=== PATIENT | male | born 1935 | race Caucasian/White ===

== ENCOUNTER 2017-12-22 15:10 | Outpatient (CLI) | payer MEDICARE, OTHER ==
[2017-12-22 18:58] LABS: HGB - HEMOGLOBIN 14.5 g/dL (14.0-18.0); MEAN CORPUSCULAR HEMOGLOBIN 32.3 pg (27.0-31.0); MEAN CORPUSCULAR HGB CONC 33.2 g/dL (32.0-36.0); MEAN CORPUSCULAR VOLUME 97.3 fL (80.0-94.0); MEAN PLATELET VOLUME 10.4 fL (7.4-11.4); RED BLOOD COUNT 4.49 10^6/uL (4.70-6.10); WHITE BLOOD COUNT 7.4 x10^3/uL (4.8-10.8)
[2017-12-22 19:10] LABS: CALCIUM 8.8 mg/dL (8.5-10.3); CREATININE 1.2 mg/dL (0.6-1.2)
== END 2017-12-22 15:11 | disposition home or self-care (01) ==
LOC: LAB.WCP 15:10
PROVIDERS: ATTEND Family Medicine
DX: R06.00 Dyspnea, unspecified (principal)
CPT/HCPCS: 36415; 80048; 83880; 84443; 85027

== ENCOUNTER 2018-01-10 13:10 | Outpatient (CLI) | payer MEDICARE, OTHER ==
[~2018-01-10 13:10] MED LIST: ALBUTEROL NEB 2.5 MG/3 ML INH ONE
== END 2018-01-10 13:11 | disposition home or self-care (01) ==
LOC: RT 13:10
PROVIDERS: ATTEND Family Medicine
DX: R06.00 Dyspnea, unspecified (principal)
CPT/HCPCS: 94060

== ENCOUNTER 2018-12-21 11:12 | Outpatient (CLI) | payer MEDICARE, OTHER ==
[2018-12-21 18:59] LABS: HGB - HEMOGLOBIN 11.6 g/dL (14.0-18.0); MEAN CORPUSCULAR HEMOGLOBIN 31.6 pg (27.0-31.0); MEAN CORPUSCULAR VOLUME 98.9 fL (80.0-94.0); MEAN PLATELET VOLUME 8.6 fL (7.4-11.4); RED BLOOD COUNT 3.65 10^6/uL (4.70-6.10); RED CELL DISTRIBUTION WIDTH 13.3 % (12.0-15.0); WHITE BLOOD COUNT 7.7 x10^3/uL (4.8-10.8)
[2018-12-21 19:14] LABS: CALCIUM 8.5 mg/dL (8.5-10.3)
== END 2018-12-21 11:13 | disposition home or self-care (01) ==
LOC: LAB.WCP 11:12
PROVIDERS: ATTEND Family Medicine
DX: R06.02 Shortness of breath (principal)
CPT/HCPCS: 36415; 80048; 83880; 85027

== ENCOUNTER 2018-12-28 14:10 | Outpatient (CLI) | payer MEDICARE, OTHER ==
--- NOTE | 2018-12-28 15:18 | XRAY Report ---
Reason: EXERTIONAL SHORTNESS OF BREATH Procedure Date: 12/28/2018 Accession Number: [id number] / [id number] Procedure: WCP - Chest 2 View X-Ray CPT Code: 51930 FULL RESULT: EXAM: CHEST RADIOGRAPHY EXAM DATE: 12/28/2018 02:26 PM. CLINICAL HISTORY: EXERTIONAL SHORTNESS OF BREATH. COMPARISON: CHEST 2 VIEW PA/LAT 12/22/2017 3:23 PM. TECHNIQUE: 2 views. FINDINGS: Lungs/Pleura: Lungs are well expanded. No evidence of lobar infiltrate. No definite evidence of pleural effusion. There is no evidence of pneumothorax. Mediastinum: Mild cardiomegaly. Patient has undergone sternotomy for valve replacement surgery. There is thoracic aortic tortuosity. Stable dehiscence of upper sternotomy wires. Other: There is left shoulder degenerative disease. IMPRESSION: No acute intrathoracic plain film abnormality. RADIA
== END 2018-12-28 14:11 | disposition home or self-care (01) ==
LOC: DI.WCP 14:10
PROVIDERS: ATTEND Family Medicine
DX: R06.00 Dyspnea, unspecified (principal)
CPT/HCPCS: 71046

== ENCOUNTER 2019-01-06 13:25 | Outpatient (CLI) | payer MEDICARE, OTHER | END 2019-01-06 13:26 | disposition home or self-care (01) | LOC: DI 13:25 | PROVIDERS: ATTEND Family Medicine | DX: I34.0 Nonrheumatic mitral (valve) insufficiency (principal); Z95.2 Presence of prosthetic heart valve | CPT/HCPCS: 93306 ==

== ENCOUNTER 2019-01-26 13:46 | Outpatient (CLI) | payer MEDICARE, OTHER ==
[2019-01-26 18:28] LABS: MEAN CORPUSCULAR HEMOGLOBIN 28.8 pg (27.0-31.0); MEAN CORPUSCULAR HGB CONC 29.9 g/dL (32.0-36.0); MEAN CORPUSCULAR VOLUME 96.2 fL (80.0-94.0); MEAN PLATELET VOLUME 11.1 fL (7.4-11.4); RED BLOOD COUNT 4.52 10^6/uL (4.70-6.10); RED CELL DISTRIBUTION WIDTH 12.4 % (12.0-15.0); WHITE BLOOD COUNT 7.1 x10^3/uL (4.8-10.8)
== END 2019-01-26 13:47 | disposition home or self-care (01) ==
LOC: LAB.WCP 13:46
PROVIDERS: ATTEND Family Medicine
DX: R06.00 Dyspnea, unspecified (principal)
CPT/HCPCS: 36415; 80048; 83880; 85027

== ENCOUNTER 2019-08-07 14:25 | Outpatient (CLI) | payer MEDICARE, OTHER ==
[2019-08-07 19:06] LABS: ALBUMIN 3.8 g/dL (3.2-5.5); ALBUMIN/GLOBULIN RATIO 1.2 (1.0-2.2); BILIRUBIN,TOTAL 0.8 mg/dL (0.2-1.0); CALCIUM 8.4 mg/dL (8.5-10.3)
== END 2019-08-07 23:59 | disposition home or self-care (01) ==
LOC: LAB.N 14:25
PROVIDERS: ATTEND Family Medicine
DX: B35.6 Tinea cruris (principal); N40.0 Benign prostatic hyperplasia without lower urinary tract symptoms
CPT/HCPCS: 36415; 80053; 84153

== ENCOUNTER 2022-05-21 10:52 | Outpatient (CLI) | payer MEDICARE, OTHER ==
[2022-05-21 18:13] LABS: BASOPHILS % (AUTO) 0.5 %; EOSINOPHILS # (AUTO) 0.2 10^3/uL (0.0-0.7); EOSINOPHILS % (AUTO) 2.8 %; HCT - HEMATOCRIT 44.5 % (42.0-52.0); HGB - HEMOGLOBIN 14.7 g/dL (14.0-18.0); LYMPHOCYTES # (AUTO) 1.7 10^3/uL (1.5-3.5); MEAN CORPUSCULAR HEMOGLOBIN 33.1 pg (27.0-31.0); MEAN CORPUSCULAR VOLUME 100.2 fL (80.0-94.0); MEAN PLATELET VOLUME 11.7 fL (7.4-11.4); MONOCYTES # (AUTO) 0.6 10^3/uL (0.0-1.0); NEUTROPHILS # (AUTO) 3.8 10^3/uL (1.5-6.6); NEUTROPHILS % (AUTO) 59.4 %; PLT - PLATELET COUNT 205 10^3/uL (130-450); RED BLOOD COUNT 4.44 10^6/uL (4.70-6.10); WHITE BLOOD COUNT 6.4 x10^3/uL (4.8-10.8)
[2022-05-21 18:35] LABS: ALBUMIN/GLOBULIN RATIO 1.3 (1.0-2.2); ALKALINE PHOSPHATASE 51 IU/L (42-121); ALT ALANINE AMINOTRANSFERASE 15 IU/L (10-60); AST ASPARTATE AMINOTRANSFERASE 20 IU/L (10-42); BILIRUBIN,TOTAL 1.3 mg/dL (0.2-1.0); BUN - BLOOD UREA NITROGEN 18 mg/dL (6-20); CARBON DIOXIDE - CO2 24 mmol/L (21-32); CHLORIDE 106 mmol/L (101-111); CHOL/HDL RATIO 3.1 (<5.0); CHOLESTEROL 160 mg/dL; CREATININE 0.9 mg/dL (0.6-1.2); GFR - MDRD 80 (>89); GLUCOSE 99 mg/dL (70-100); HDL CHOLESTEROL 52 mg/dL; LDL CHOLESTEROL,CALCULATED 90 mg/dL; LDL/HDL RATIO 1.7 (<3.6); SODIUM 137 mmol/L (135-145); TOTAL PROTEIN 7.2 g/dL (6.7-8.2); TRIGLYCERIDES 92 mg/dL; VLDL CHOLESTEROL 18 mg/dL
[2022-05-21 18:41] LABS: THYROID STIMULATING HORMONE 4.55 uIU/mL (0.34-5.60)
== END 2022-05-21 10:53 | disposition home or self-care (01) ==
LOC: LAB.N 10:52
PROVIDERS: ATTEND Internal Medicine
DX: I48.0 Paroxysmal atrial fibrillation (principal); Z95.2 Presence of prosthetic heart valve; Z13.220 Encounter for screening for lipoid disorders
CPT/HCPCS: 36415; 80053; 80061; 83721; 84443; 85025

== ENCOUNTER 2022-09-20 16:43 | Outpatient (CLI) | payer MEDICARE | END 2022-09-20 16:44 | disposition left against medical advice (07) | LOC: EMS 16:43 | DX: S01.412A Laceration without foreign body of left cheek and temporomandibular area, initial encounter (principal); S01.112A Laceration without foreign body of left eyelid and periocular area, initial encounter; W01.0XXA Fall on same level from slipping, tripping and stumbling without subsequent striking against object, initial encounter; Y93.01 Activity, walking, marching and hiking; Y92.511 Restaurant or cafe as the place of occurrence of the external cause ==

== ENCOUNTER 2023-07-12 10:15 | Outpatient (CLI) | payer MEDICARE ==
--- NOTE | 2023-07-12 12:12 | XRAY Report ---
PROCEDURE: Hand 3 View RT INDICATIONS: LOCALIZED SWELLING TO RIGHT HAND TECHNIQUE: 3 views of the hand(s) acquired. COMPARISON: None. FINDINGS: Bones: No fractures or dislocations. 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 Mild to moderate osteoarthritic changes of the other interphalangeal joints. No suspicious bony le sions. Soft tissues: No suspicious soft tissue calcifications or masses. IMPRESSION: No acute bony abnormality. Osteoarthritic changes of the hand, severe at the first interphalangeal lida int. Reviewed by: Billy Bowers MD on 07/12/2023 12:10 PM PST Approved by: Billy Bowers MD on 07/12/2023 12:10 PM PST Station ID: [id number]
== END 2023-07-12 10:30 | disposition home or self-care (01) ==
LOC: DI.N 10:15
PROVIDERS: ATTEND Family Medicine
DX: R22.31 Localized swelling, mass and lump, right upper limb (principal); M19.041 Primary osteoarthritis, right hand
CPT/HCPCS: 36415; 80048; 83880; 84550; 85651

== ENCOUNTER 2023-07-12 10:30 | Outpatient (CLI) | payer MEDICARE ==
[2023-07-12 18:22] LABS: CALCIUM 9.1 mg/dL (8.5-10.3); CREATININE 0.9 mg/dL (0.6-1.3); POTASSIUM 3.7 mmol/L (3.5-4.5); URIC ACID 6.6 mg/dL (4.4-7.6)
== END 2023-07-12 10:45 | disposition home or self-care (01) ==
LOC: LAB.N 10:30
PROVIDERS: ATTEND Family Medicine
DX: R22.31 Localized swelling, mass and lump, right upper limb (principal)
CPT/HCPCS: 36415; 80048; 83880; 84550; 85651

== ENCOUNTER 2024-09-08 00:04 | Inpatient (IN) ==
--- NOTE | 2024-09-08 00:18 | ED Physician Documentation ---
PD HPI ABD PAIN Stated complaint Stated Complaint: BLEEDING FROM [place] Chief complaint Chief Complaint: Abd Pain History obtained from History obtained from: Patient Additional information Additional information: 89yM with pmh stage 5 prostate cancer (urologist Dr. Esposito) p/w hematuria and suprapubic pain tonight. patient has a difficult time giving a history but is AOX4. Chart review reveals he is newly diagnosed with cancer with prostate bx completed 08/06/24 and office visit 08/15/24 with plan for bicalutamide palliative oral androgen deprivation therapy. Patient is well appearing and denies fever or pain anywhere aside from suprapubic region. urinating without difficulty Meds/Allgy Home Medications Ambulatory Orders Medication Instructions Recorded Confirmed finasteride 5 mg-tadalafil 5 mg 1 cap PO QDAY 05/17/24 08/06/24 capsule latanoprost 0.005 % eye drops 1 drp ophthalmic (eye) QDAY 05/17/24 08/06/24 tamsulosin 0.4 mg capsule 0.4 mg PO QDAY #90 caps 07/07/24 08/06/24 bicalutamide 50 mg tablet 50 mg PO QDAY #30 tabs 08/15/24 08/15/24 Allergies Allergies Allergy/AdvReac Type Severity Reaction Status Date / Time No Known Allergies Allergy Unknown Unknown Verified 09/08/24 00:14 [facility] Medical History Medical History (Updated 09/08/24 @ 06:14 by Ericka Gonzalez MD) Lipid screening (11/20/21) Lipid screening (06/18/23) Laceration without foreign body of other part of head, subsequent encounter (09/23/22) Laceration without foreign body of other part of head, initial encounter (09/20/22) Exertional shortness of breath (12/21/18) Dyspnea (12/22/17) Acute COVID-19 (06/15/22) Hard of hearing Glaucoma Coronary artery disease Gout History of cataract Surgical History Surgical History History of total left knee replacement Aortic valve replaced History of ventral hernia repair Social History Social History Smoking Status: Never smoker Relationship: Do you feel safe in your home environment?: Yes Suffered physical, verbal, emotional, or financial abuse?: No Frequency: Occasional Substance Use: denies use Are you sexually active?: No POLST Patient has POLST: Yes Exam Constitutional normal general appearance and no apparent distress elderly appearing HENMT normocephalic and head/scalp atraumatic Eyes PERRL Gastrointestinal abdomen normal to inspection, abdomen soft to palpation and nontender to palpation Genitourinary no CVA tenderness Results Vitals Vitals: Vital Signs - 24 hr 09/08/24 00:10 09/08/24 00:39 09/08/24 02:14 Temperature 36.3 C L Temperature Source Temporal Artery Scan Pulse Rate 67 85 Respiratory Rate 18 16 Blood Pressure 112/82 109/81 O2 Saturation 93 96 O2 Source Room air Room air Pain Intensity 7 8 7 09/08/24 02:20 09/08/24 02:23 09/08/24 02:53 Temperature Temperature Source Pulse Rate Respiratory Rate Blood Pressure O2 Saturation O2 Source Pain Intensity 9 7 6 09/08/24 04:00 09/08/24 04:06 09/08/24 04:36 Temperature Temperature Source Pulse Rate 94 Respiratory Rate 24 Blood Pressure 114/90 O2 Saturation 98 O2 Source Room air Pain Intensity 8 8 8 09/08/24 05:20 Temperature Temperature Source Pulse Rate Respiratory Rate Blood Pressure O2 Saturation O2 Source Pain Intensity 8 Oxygen O2 Source Room air Labs Labs: Laboratory Tests 09/08/24 09/08/24 09/08/24 00:30 02:15 05:45 WBC 8.8 RBC 3.64 L Hgb 12.2 L Hct 37.5 L MCV 103.0 H MCH 33.5 H MCHC 32.5 RDW 13.4 Plt Count 213 MPV 10.6 Neut # (Auto) 5.8 Lymph # (Auto) 2.2 Bond # (Auto) 0.7 Eos # (Auto) 0.1 Baso # (Auto) 0.0 Absolute Nucleated RBC 0.00 Nucleated RBC % 0.0 PT 15.1 H INR 1.4 H Sodium 137 Potassium 3.8 Chloride 103 Carbon Dioxide 26 Anion Gap 8.0 BUN 12 Creatinine 0.9 Estimated GFR (MDRD) 79 L Glucose 109 H Calcium 8.8 Total Bilirubin 1.0 AST 18 ALT 10 Alkaline Phosphatase 231 H Total Protein 6.8 Albumin 3.5 Globulin 3.3 Albumin/Globulin Ratio 1.1 Lipase 15 Urine Color RED/BLOODY Urine Clarity BLOODY Urine pH 8.0 H Ur Specific [place] 1.025 Urine Protein >=300 H Urine Glucose (UA) NEGATIVE Urine Ketones NEGATIVE Urine Occult Blood LARGE H Urine Nitrite Urine Bilirubin NEGATIVE Urine Urobilinogen 0.2 (NORMAL) Ur Leukocyte Esterase NEGATIVE Urine RBC TNTC H Urine WBC 0-3 Ur Squamous Epith Cells RARE Squamous Urine Bacteria None Seen Urine Culture Comments NOT INDICATED PD Medical Decision Making ED course ED course: 89yM p/w hematuria X 1 day with history of newly diagnosed prostate cancer. also with suprapubic pain, improving s/p IM dilaudid. urinalysis does not show infection but does have blood, likely related to his cancer. His kidney function is normal. CT shows urinary retention with likely clotted blood in the bladder. He has extensive pelvic cancer and prostate is severely enlarged. He was having severe pain and had several doses of dilaudid without relief. patient was able to urinate about 100cc all night per nurse staff and bladder scan shows 500cc in bladder. multiple attempts at catheterization were attempted and after 2nd coudet catheter attempt we were able to achieve cath. plan for continuous bladder irrigation and admission for pain control. SW consult placed given his advanced disease and need for advanced care planning. patient lives alone at [facility] and states he has limited resources within the community and is "kind of a hermit". He understands he has a poor prognosis given his advanced cancer and is interested in palliative care resources. Patient endorsed to incoming daytime ED MD at 7am shift change. Discharge Plan Discharge Condition: Stable Clinical Impression: Hematuria, Prostate cancer, Acute urinary retention, Hydroureteronephrosis Prescriptions: No Action tamsulosin 0.4 mg capsule 0.4 mg PO QDAY Qty: 90 3RF finasteride-tadalafil 5-5 mg capsule 1 cap PO QDAY Rx Instructions: administer on an empty stomach latanoprost 0.005 % drops 1 drp ophthalmic (eye) QDAY bicalutamide 50 mg tablet 50 mg PO QDAY Qty: 30 3RF Activity Restrictions/Additional Instructions: You were seen in the emergency department for evaluation of blood in the urine, likely related to your prostate cancer. Your urinalysis showed no infection. Pain medication was provided to take home. You should follow up with Dr. Esposito and take bicalutamide as discussed at your office visit on august 15. Please follow-up with your urologist and return to the emergency department if you have any new or worsening symptoms or other concerns. Print Language: Martiniquais Patient Instructions: Cancer Prostate Stand Alone Forms: PCP List
[2024-09-08] MEDS: HYDROmorphone 0.5 MG/0.5 ML SYRINGE IM STA (00:39)
[2024-09-08] MEDS: oxyCODONE/ACET 5/325 Prepack 4 PO STA (00:41)
[2024-09-08 00:57] LABS: BILIRUBIN,URINE NEGATIVE (NEGATIVE); GLUCOSE, URINE (UA) NEGATIVE (NEGATIVE); KETONES,URINE (UA) NEGATIVE (NEGATIVE); LEUKOCYTE ESTERASE, URINE NEGATIVE (NEGATIVE); OCCULT BLOOD,URINE LARGE (NEGATIVE); PROTEIN,URINE >=300 mg/dL (NEGATIVE); UROBILINOGEN,URINE 0.2 (NORMAL) E.U./dL (NORMAL)
[2024-09-08 00:59] LABS: CLARITY,URINE BLOODY (CLEAR)
[2024-09-08 01:00] LABS: BACTERIA,URINE None Seen /HPF (None Seen); RBC,URINE TNTC /HPF (0-5); SQUAMOUS EPITHELIAL CELL,UR RARE Squamous (<= Few); WBC,URINE 0-3 /HPF (0-3)
[2024-09-08 02:23] LABS: BASOPHILS % (AUTO) 0.3 %; EOSINOPHILS # (AUTO) 0.1 10^3/uL (0.0-0.7); EOSINOPHILS % (AUTO) 1.4 %; HCT - HEMATOCRIT 37.5 % (42.0-52.0); HGB - HEMOGLOBIN 12.2 g/dL (14.0-18.0); LYMPHOCYTES # (AUTO) 2.2 10^3/uL (1.5-3.5); LYMPHOCYTES % (AUTO) 24.5 %; MEAN CORPUSCULAR HEMOGLOBIN 33.5 pg (27.0-31.0); MEAN CORPUSCULAR HGB CONC 32.5 g/dL (32.0-36.0); MEAN PLATELET VOLUME 10.6 fL (7.4-11.4); MONOCYTES # (AUTO) 0.7 10^3/uL (0.0-1.0); MONOCYTES % (AUTO) 7.8 %; NEUTROPHILS # (AUTO) 5.8 10^3/uL (1.5-6.6); NEUTROPHILS % (AUTO) 65.7 %; PLT - PLATELET COUNT 213 10^3/uL (130-450); RED BLOOD COUNT 3.64 10^6/uL (4.70-6.10); RED CELL DISTRIBUTION WIDTH 13.4 % (12.0-15.0); WHITE BLOOD COUNT 8.8 x10^3/uL (4.8-10.8)
[2024-09-08] MEDS: oxyCODONE 5 MG TABLET PO STA (02:23)
[2024-09-08 02:41] LABS: ALBUMIN 3.5 g/dL (3.2-5.5); ALBUMIN/GLOBULIN RATIO 1.1 (1.0-2.2); CALCIUM 8.8 mg/dL (8.5-10.3); CREATININE 0.9 mg/dL (0.6-1.3); POTASSIUM 3.8 mmol/L (3.5-4.5); TOTAL PROTEIN 6.8 g/dL (6.4-8.9)
[2024-09-08] MEDS: SODIUM CHLORIDE 0.9% 500 ML IV ONE (04:05)
[2024-09-08] MEDS: HYDROmorphone 0.5 MG/0.5 ML SYRINGE IVP STA ×2 (04:06→05:20)
[2024-09-08] MEDS ORDERED: iohexoL-300 100 ML VIAL ONE (04:17)
[2024-09-08] MEDS: iohexoL-300 100 ML VIAL IVP ONE (05:07)
[2024-09-08 05:57] LABS: INR 1.4 (0.8-1.2); PT - PROTHROMBIN TIME 15.1 secs (9.9-12.6)
--- NOTE | 2024-09-08 07:34 | ED Physician Documentation ---
ED Addendum Addendum Addendum: Patient is signed out to me by Dr. Gonzalez awaiting hospitalist shift change. Plan is to admit him for CBI/manual clot removal from his catheter. He currently has a 16 Nepalese coud catheter in, this will be high risk for clotting. He has metastatic cancer and does live alone. He is open to discussion of hospice. Not on hospice currently. Reached out to Dr. Esposito with the plan to see the patient tomorrow in the hospital when he returns to [facility]. A 16 Nepalese coud was changed to a 20 Nepalese three-way catheter and CBI started. Discussed the case with the hospitalist, Dr. Lo who accepts. Bladder is full of blood/clots on CT scan. This document was made in part using voice recognition software. While efforts are made to proofread this document, sound alike and grammatical errors may occur. Discharge Plan Discharge Patient Disposition: 66 [facility] DC/Xfer Condition: Stable Clinical Impression: Prostate cancer, Acute urinary retention, Hydroureteronephrosis Hematuria Qualifiers: Hematuria type: gross Qualified Code(s): R31.0 - Gross hematuria Prescriptions: No Action tamsulosin 0.4 mg capsule 0.4 mg PO QDAY Qty: 90 3RF finasteride-tadalafil 5-5 mg capsule 1 cap PO QDAY Rx Instructions: administer on an empty stomach latanoprost 0.005 % drops 1 drp ophthalmic (eye) QDAY bicalutamide 50 mg tablet 50 mg PO QDAY Qty: 30 3RF Activity Restrictions/Additional Instructions: You were seen in the emergency department for evaluation of blood in the urine, likely related to your prostate cancer. Your urinalysis showed no infection. Pain medication was provided to take home. You should follow up with Dr. Esposito and take bicalutamide as discussed at your office visit on august 15. Please follow-up with your urologist and return to the emergency department if you have any new or worsening symptoms or other concerns. Print Language: Armenian
--- NOTE | 2024-09-08 09:45 | HISTORY & PHYSICAL EXAMINATION ---
Chief Complaint Chief Complaint Chief Complaint: Hematuria History of Present Illness Admitted From Admitted From:: Home History Obtained From Records Reviewed: Yes History obtained from: Patient Exam Limitations: None History of Present Illness HPI Comment/Other: Patient is a 89-year-old male with a history of prostate cancer with metastatic disease including pelvic adenopathy, osteoblastic sacral disease, pulmonary nodules who presented with hematuria, as well as dysuria. He states that he has had difficulty urinating with burning for approximately 4 to 5 days. Yesterday evening, he started noticing some blood from his penile area. He has had some continued bleeding since then. He denies any fevers or chills. Records were reviewed, and the last time he saw his urologist, Dr. Esposito was on 08/15/2024. At that time, he did have a cystoscopy done with concern for fungating mass. He recommended PSMA PET CT scan, which she had ordered to [facility]. He also recommended a second opinion from [facility] urology. Patient does have this PET scan scheduled, but has not been completed yet. He was started on continuous bladder irrigation. ED staff did speak with him about Hospice care, and he was open to an informational. In the ER, patient was normotensive blood pressure was 112/82, heart rate was 67, respiratory rate was 18, he was saturating 96% on room air, and was afebrile. CT scan was done, and it did show extra capsular prostate cancer invading the bladder and seminal vesicles resulting in bilateral ureteral obstruction, greater on the left and intravesicular hemorrhage. Emergency room did contact patient's urologist who won't be in town until tomorrow. Meds/Allgy Home Medications Ambulatory Orders Medication Instructions Recorded Confirmed finasteride 5 mg-tadalafil 5 mg 1 cap PO QDAY 05/17/24 08/06/24 capsule latanoprost 0.005 % eye drops 1 drp ophthalmic (eye) QDAY 05/17/24 08/06/24 tamsulosin 0.4 mg capsule 0.4 mg PO QDAY #90 caps 07/07/24 08/06/24 bicalutamide 50 mg tablet 50 mg PO QDAY #30 tabs 08/15/24 08/15/24 finasteride 5 mg tablet mg 09/08/24 Allergies Allergies Allergy/AdvReac Type Severity Reaction Status Date / Time No Known Allergies Allergy Unknown Unknown Verified 09/08/24 00:14 [facility] Medical History Medical History (Updated 09/08/24 @ 12:23 by Chichi Moon MD) Lipid screening (11/20/21) Lipid screening (06/18/23) Laceration without foreign body of other part of head, subsequent encounter (09/23/22) Laceration without foreign body of other part of head, initial encounter (09/20/22) Exertional shortness of breath (12/21/18) Dyspnea (12/22/17) Acute COVID-19 (06/15/22) Hard of hearing Glaucoma Coronary artery disease Gout History of cataract Surgical History Surgical History History of total left knee replacement Aortic valve replaced History of ventral hernia repair Social History Social History Smoking Status: Never smoker Second hand tobacco smoke exposure: No Do you dip or chew tobacco?: No Do you vape?: No Patient requests smoking cessation consult: No Initiate information on smoking cessation: No Relationship: Level: Assisted Home Mobility Equipment: Cane Do you feel safe in your home environment?: Yes Suffered physical, verbal, emotional, or financial abuse?: No Frequency: Occasional Substance Use: denies use Are you sexually active?: No POLST Patient has POLST: Yes Review of Systems Constitutional Reports: Fatigue, Malaise, Weakness and Poor appetite; Denies: Fever, Chills, Diaphoresis, Night sweats or Changes in appetite or eating habits Eyes Denies: Pain, Irritation, Amaurosis or Blurry vision Ears, nose, mouth, and throat Denies: Ear pain, Ear discharge, Hearing loss, Hearing aids, Tinnitus, Nasal discharge, Nasal congestion, Throat pain, Neck pain or Throat swelling Cardiovascular Denies: Irregular heart rate, chest pain, palpitations, edema, swelling of feet/ankles or shortness of breath with exertion Respiratory Denies: Shortness of breath, Cough, Sputum production, Change in phlegm color or Wheezing Gastrointestinal Denies: Abdominal pain, Abdominal distention, Nausea, Vomiting, Poor appetite, Heartburn, Diarrhea, Constipation or Bloating Genitourinary Reports: Painful urination, Incontinence, Blood in urine and Penile discharge; Denies: Flank pain, Urinary frequency, Urinary urgency or Nocturia Musculoskeletal Denies: Back pain, Neck pain, Extremity pain or Extremity swelling Integumentary/Breast Denies: Rash, Itching, Dryness, Redness or Skin pain Neurological Reports: General weakness; Denies: Headache, Focal weakness, Weakness in extremities or Numbness in extremities Psychiatric Denies: Depression, Anxiety, Mood swings, Panic attacks or Change in sleep pattern Endocrine Reports: Fatigue; Denies: Excessive urination or Excessive thirst Hematologic/Lymphatic Denies: Anemia, Easy bruising, Petechiae, Easy bleeding or Blood clots Allergic/Immunologic Denies: Throat swelling, Tongue swelling or Wheezing Prior Level of Functionality: Lives alone. Independent of daily living. Exam Constitutional normal general appearance, no apparent distress, average body habitus, no limitations and alert HENMT normocephalic, head/scalp atraumatic and hearing grossly normal bilaterally Eyes PERRL, EOMs intact bilaterally, conjunctivae normal and no scleral icterus Neck/C-Spine visual inspection normal, trachea midline and cervical spine nontender Lymph no lymphadenopathy noted Chest inspection of chest normal Respiratory breath sounds equal bilaterally, normal respiratory effort, clear to auscultation bilaterally, no wheezes and no rales Cardiovascular normal heart rate noted, rhythm abnormal (irregular), no murmur and no JVD Gastrointestinal abdomen normal to inspection, abdomen soft to palpation and nontender to palpation Genitourinary no CVA tenderness and bladder abnormal to palpation (tender) Extremities normal to inspection, normal to palpation, no tenderness and full ROM Neurology no movement abnormality noted and no sensory deficits noted Psychiatry mental status grossly normal, oriented x3, thought process normal, cooperative and affect normal Skin skin color normal, no rash, no lesions and no wounds Conclusion/Plan Problem List (1) Acute urinary retention: Plan: CT abdomen shows extracapsular prostate 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 20 Mal[place]ian placed by emergency room. Spoke with urology, recommend manual irrigation when clots off. Hold off on continuous bladder irrigation at this time. Will make patient n.p.o. tomorrow at 11 AM for planned procedure tomorrow evening. Continue IV Rocephin every 24 hours. Urology following. (2) Hydroureteronephrosis: Plan: See above. (3) Hematuria: Plan: See above. Qualifiers: Hematuria type: gross Qualified Code(s): R31.0 - Gross hematuria (4) Malignant neoplasm of prostate with Alex grade score of 8 to 10: Plan: Patient with recently diagnosed prostate cancer with extensive metastasis to bone, pulmonary nodules, pelvic adenopathy. Expresses interest in hospice informational at this time. (5) Paroxysmal atrial fibrillation: Plan: Patient is not on anticoagulation in the outpatient setting. Currently he is in atrial fibrillation, but is rate controlled. Continue to monitor. (6) Gout: Plan: Has not been on any medication for this for a while. Continue to monitor. Qualifiers: Gout site: unspecified site Gout etiology: unspecified cause C hronicity: chronic Presence of tophus: without tophus Qualified Code(s): M [id number].[id number] - Chronic gout, unspecified, without tophus (tophi) (7) Coronary artery disease: Plan: Hold aspirin in setting of active hematuria. Qualifiers: Coronary Disease-Associated Artery/Lesion type: unspecified vessel or lesion type [place] vs. transplanted heart: unspecified whether [place] or transplanted heart Associated angina: unspecified whether angina present Q ualified Code(s): I25.10 - Atherosclerotic heart disease of [place] coronary artery without angina pectoris Lab Results Lab results reviewed: Yes 09/08/24 02:15 09/08/24 02:15 Diagnostic Imaging Results Diagnostic Imaging Results: positive Final report reviewed Core Measures Anticipated LOS I expect patient to be DC'd or transferred within 96 hours.: Yes DVT/VTE - Prophylaxis VTE/DVT Device ordered at admit?: Yes VTE/DVT Prophylaxis med ordered at admit?: No Not Ordered - Medical Reason: Contraindicated Stroke - Rehab Assessment Rehab services assessment to be ordered?: No Not Ordered - Medical Reason: Not indicated AMI - Statin at Admit Aspirin Prescribed on Admit: No Not Ordered - Medical Reason: Contraindicated
--- NOTE | 2024-09-08 09:54 | CT Report ---
PROCEDURE: CT Abdomen/Pelvis W INDICATIONS: suprapubic pain TECHNIQUE: Helical axial CT of the abdomen and pelvis was obtained after intravenous contrast adminis tration and reformatted in multiple planes. Radiation dose reduction was achieved using automated exp osure control or adjustment of mA and/or kV according to patient size. COMPARISON: None FINDINGS: Lower thorax: Bilateral pulmonary nodules noted in the lung bases, largest measures 11 mm in the righ t middle lobe. Dense coronary artery vascular calcification. Midline sternotomy wires. No hiatal her gilberto. Liver: Normal in size and attenuation. No contour deformity present. Biliary system: No calcified cholelithiasis or pericholecystic inflammation. No evidence of bile du ct dilatation. Pancreas: Unremarkable without mass or inflammation evident. Spleen: Normal in size and density. Adrenals: 11 mm right adrenal nodule Reproductive system: Hypertrophic prostate elevates the bladder floor. Several periprostatic enlarge d lymph nodes. Pelvic sidewall as well as obturator nodes. There is an irregular right obturator node measuring 3.3 cm. Urinary system: Bilateral hydronephrosis and hydroureter greater on the left. No obstructing renal o r ureteral calcification. Intrabladder hemorrhage noted to. Urinary bladder unremarkable. Gastrointestinal system: The bowel appears unremarkable with no evidence of bowel obstruction or inf lammation. The stomach appears unremarkable. Peritoneal spaces: No mesenteric or retroperitoneal adenopathy. No free air. No free fluid. Vasculature: The IVC, aorta and iliac vasculature are unremarkable. Abdominal wall: Abdominal wall is intact without evidence of ventral or inguinal hernias. Musculoskeletal: Right sacral osteoblastic lesion measures 3 cm without sacral fracture. Degenerativ e disc disease and arthropathy. IMPRESSION: Extracapsular prostate cancer invading the bladder and seminal vesicles resulting in bilateral ureter al obstruction greater on the left and intravesicular hemorrhage. Local and distant metastatic disease includes pelvic adenopathy, osteoblastic sacral disease, pulmona ry nodules. Note: This final report is concordant with the preliminary after-hours interpretation provided by [facility], [email or web address] Reviewed by: Kelechi Esparza MD on 09/08/2024 8:53 AM [place] Approved by: Kelechi Esparza MD on 09/08/2024 8:53 AM [place] Station ID: [id number]
[2024-09-08] MEDS: MORPHINE 2 MG/ML CARPUJECT IVP PRN (09:57)
[2024-09-08] MEDS: SODIUM CHLORIDE FLUSH 0.9% 10 ML SYRINGE IVP SCH (09:57)
[2024-09-08] MEDS: TAMSULOSIN 0.4 MG CAPSULE PO SCH (11:40)
[2024-09-08] MEDS: FINASTERIDE 5 MG TABLET PO SCH (11:40)
[2024-09-08] MEDS: HYDROcod/ACETAM 5/325 MG TABLET PO PRN (13:44)
[2024-09-08] MEDS: SODIUM CHLORIDE FLUSH 0.9% 10 ML SYRINGE IVP PRN (13:45)
[2024-09-08] MEDS: cefTRIAXone 1 GM VIAL IVP SCH (13:45)
--- NOTE | 2024-09-08 15:23 | PHARMACY PROGRESS NOTE ---
Best Possible Medication History Admit Date and Time: 09/08/24 [id number] Home Medications Medication Instructions Recorded Confirmed Type latanoprost 0.005 % eye drops 1 drp ophthalmic (eye) QPM 05/17/24 09/08/24 History bicalutamide 50 mg tablet 50 mg PO DAILY 09/08/24 09/08/24 History finasteride 5 mg tablet 5 mg PO DAILY 09/08/24 09/08/24 History tamsulosin 0.4 mg capsule 0.4 mg PO DAILY 09/08/24 09/08/24 History Processed by: Pharmacy Medications reviewed in ED?: No Medication History completed: Yes Patient Interview: Completed Secondary Source(s): Pharmacy records and Insurance records [facility] Statement: As the person ultimately responsible for medication therapy, providers are able to order a medication from an existing home medication list in [facility] via the "Reconcile Routine" prior to Confirmation of that medication by software support representative. Such practice is discouraged except when the physician, in their clinical judgment, deems that a medical need exists for a medication without regard to previous use.
[2024-09-08] MEDS: MELATONIN 3 MG TABLET PO SCH (17:39)
[2024-09-08] MEDS: LATANOPROST 0.005% OPHTH DROPS EACHEYE SCH (21:20)
[2024-09-09 06:05] LABS: HCT - HEMATOCRIT 29.7 % (42.0-52.0); HGB - HEMOGLOBIN 9.6 g/dL (14.0-18.0); MEAN CORPUSCULAR HEMOGLOBIN 33.6 pg (27.0-31.0); MEAN CORPUSCULAR HGB CONC 32.3 g/dL (32.0-36.0); MEAN CORPUSCULAR VOLUME 103.8 fL (80.0-94.0); MEAN PLATELET VOLUME 10.7 fL (7.4-11.4); RED BLOOD COUNT 2.86 10^6/uL (4.70-6.10); RED CELL DISTRIBUTION WIDTH 13.8 % (12.0-15.0); WHITE BLOOD COUNT 8.8 x10^3/uL (4.8-10.8)
[2024-09-09 06:26] LABS: CALCIUM 7.7 mg/dL (8.5-10.3); CREATININE 1.4 mg/dL (0.6-1.3); POTASSIUM 3.7 mmol/L (3.5-4.5)
--- NOTE | 2024-09-09 09:10 | PROVIDER PROGRESS NOTE ---
Subjective Subjective Subjective: Patient is doing okay this morning. He required manual Gratian overnight due to extensive blood clots. He was eating and drinking well yesterday. He has been n.p.o. for the procedure with since this afternoon. Current Medications Current Medications Current Medications: Current Medications Generic Name Dose Route Start Last Admin Trade Name Freq PRN Reason Stop Dose Admin Acetaminophen 650 mg 09/08/24 09:48 Acetaminophen 325 Mg Tablet PO Q4HR PRN Pain 1 to 4, or Fever Hydrocodone Bitart/Acetaminophen 1 tab 09/08/24 09:50 09/09/24 02:47 Hydrocod/Acetam 5/325 Mg Tablet PO 1 tab Q4HR PRN Administration Moderate Pain (Level 4-6) Ceftriaxone Sodium 1 gm 09/08/24 13:00 09/08/24 13:45 Ceftriaxone 1 Gm Vial IVP 1 gm DAILY UMU Administration Finasteride 5 mg 09/08/24 11:00 09/08/24 11:40 Finasteride 5 Mg Tablet PO 5 mg DAILY UMU Administration Latanoprost 1 drops 09/08/24 21:00 09/08/24 21:20 Latanoprost 0.005% Ophth Drops EACHEYE 1 drops QPM UMU Administration Melatonin 3 mg 09/08/24 18:00 09/08/24 21:21 Melatonin 3 Mg Tablet PO 3 mg QPM UMU Administration Morphine Sulfate 2 mg 09/08/24 09:50 09/08/24 09:57 Morphine 2 Mg/Ml Carpuject IVP 2 mg Q6HR PRN Administration Severe Pain (Level 7-10) Bicalutamide 50 Mg 1 each 09/09/24 09:00 Tablet PO DAILY UMU Sodium Chloride 10 ml 09/08/24 09:48 09/08/24 13:45 Sodium Chloride Flush 0.9% 10 Ml Syringe IVP 10 ml PRN PRN Administration NEEDED PER PROVIDER ORDERS Sodium Chloride 10 ml 09/08/24 09:48 09/09/24 01:10 Sodium Chloride Flush 0.9% 10 Ml Syringe IVP 10 ml 0100,0900,1700 UMU Administration Tamsulosin HCl 0.4 mg 09/08/24 11:00 09/08/24 11:40 Tamsulosin 0.4 Mg Capsule PO 0.4 mg DAILY UMU Administration Objective Vital Signs/Intake & Output Reviewed Vital Signs: Yes Vital Signs: Vital Signs x48h Temp Pulse Resp BP Pulse Ox 09/09/24 08:45 97.3 F L 69 18 94/56 L 93 09/09/24 05:59 97.7 F 77 18 83/63 L 95 Intake & Output: Intake & Output 09/06/24 09/07/24 09/08/24 09/09/24 23:59 23:59 23:59 23:59 Intake Total 1140 / 1140 Output Total 3840 / 3840 725 / 725 Balance -2700 / -2700 -725 / -725 Weight (kg) 104 kg Objective General Appearance: positive No acute distress and Alert; negative Anxious or Lethargic Eyes Bilateral: positive Normal inspection, PERRL and EOMI ENT: positive ENT inspection nml, Pharynx nml and No signs of dehydration Neck: positive Nml inspection, Thyroid nml and No JVD Respiratory: positive Chest non-tender, No respiratory distress and Breath sounds nml; negative Wheezes, Rales or Rhonchi Cardiovascular: positive No murmur and Irregularly irregular; negative Tachycardia, Bradycardia, Systolic murmur or Diastolic murmur Abdomen: positive Non-tender; negative Guarding, Rebound, Hepatomegaly, Splenomegaly or Mass Back: positive Nml inspection; negative CVA tenderness (R) or CVA tenderness (L) Skin: positive Color nml, No rash and Warm Extremities: positive Non-tender, Full ROM, Nml appearance and No pedal edema Neurologic/Psychiatric: positive Oriented x3 Comments/Other: Dickinson with gross blood noted. Lab Results 09/09/24 05:52 09/09/24 05:52 Other Labs: Lab Results x24hrs 09/09/24 Range/Units 05:52 WBC 8.8 (4.8-10.8) x10^3/uL RBC 2.86 L (4.70-6.10) 10^6/uL Hgb 9.6 L (14.0-18.0) g/dL Hct 29.7 L (42.0-52.0) % MCV 103.8 H (80.0-94.0) fL MCH 33.6 H (27.0-31.0) pg MCHC 32.3 (32.0-36.0) g/dL RDW 13.8 (12.0-15.0) % Plt Count 173 (130-450) 10^3/uL MPV 10.7 (7.4-11.4) fL Sodium 136 (135-145) mmol/L Potassium 3.7 (3.5-4.5) mmol/L Chloride 105 (101-111) mmol/L Carbon Dioxide 26 (21-32) mmol/L Anion Gap 5.0 L (6-13) BUN 20 (6-20) mg/dL Creatinine 1.4 H (0.6-1.3) mg/dL Estimated GFR (MDRD) 48 L (>89) Glucose 109 H (74-104) mg/dL Calcium 7.7 L (8.5-10.3) mg/dL Diagnostic Imaging Diagnostic Imaging Results: positive Final report reviewed Assessment/Plan Problem List (1) Acute urinary retention: Impression: CT abdomen shows extracapsular prostate 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 20 [place]ian placed by emergency room. Spoke with urology, recommend manual irrigation when clots off. Hold off on continuous bladder irrigation at this time. Plan for procedure with Urology today. Continue IV Rocephin every 24 hours. Urology following. (2) Hydroureteronephrosis: Impression: See above. (3) Hematuria: Impression: See above. Qualifiers: Hematuria type: gross Qualified Code(s): R31.0 - Gross hematuria (4) Malignant neoplasm of prostate with Alex grade score of 8 to 10: Impression: Patient with recently diagnosed prostate cancer with extensive metastasis to bone, pulmonary nodules, pelvic adenopathy. Expresses interest in hospice informational at this time - consulted. (5) Paroxysmal atrial fibrillation: Impression: Patient is not on anticoagulation in the outpatient setting. Currently he is in atrial fibrillation, but is rate controlled. Continue to monitor. (6) Gout: Impression: Has not been on any medication for this for a while. Continue to monitor. Qualifiers: Chronicity: chronic Gout etiology: unspecified cause Gout site: u nspecified site Presence of tophus: without tophus Qualified Code(s): M1A.9XX0 - Chronic gout, unspecified, without tophus (tophi) (7) Coronary artery disease: Impression: Hold aspirin in setting of active hematuria. Qualifiers: Associated angina: unspecified whether angina present Coronary Disease- Associated Artery/Lesion type: unspecified vessel or lesion type [place] vs. transplanted heart: unspecified whether [place] or transplanted heart Qualified Code(s): I25.10 - Atherosclerotic heart disease of [place] coronary artery without angina pectoris
--- NOTE | 2024-09-09 14:42 | PREOP HISTORY & PHYSICAL ---
Surgical History & Physical Chief Complaint/HPI Chief Complaint: hematuria History of Present Illness: Zaki is an 89-year-old male well-known to me with a recent diagnosis of advanced prostate cancer. He had [place] grade group 5 prostate cancer in all 12 cores of a recent biopsy. He previously has been seen by me for dysuria, He did have urinary retension at one point as well. He was recently started on bicalutamide His plan at my last office visit was to start him on bicalutamide and androgen deprivation therapy. He started bicalutamide early August 2024. He presented to the emergency room at [facility] yesterday with hematuria and suprapubic pain CT scan showed a large volume of clot in his bladder. Along with concern of bilateral hydroureteronephrosis, metastatic pelvic and likely retroperitoneal lymphadenopathy along with nodularity in the chest concerning for metastatic disease. He was admitted to the hospital yesterday morning. I was contacted after his admission, early 09/08/24 though I was not automation control integrator. A catheter was placed in the ER. He has required manual irrigation multiple times. He takes no blood thinning medications. As he was otherwise stable, I returned to the [place] as early as I could today in order to expedite his care His hemoglobin has dropped from baseline of 14 to 12.2 yesterday to 9.6 today. He is afebrile,hemodynamically stable but does have some soft blood pressures with the most recent being 94/56 but he is not tachycardic. He appears at his baseline. At bedside he states he has been having some suprapubic pains. He states that his only goal in life is to be able to phone the [place] [facility] to talk to the radiologist chief of breast imaging and state department about his ideas to make earthquake-proof houses and to re-make He reiterates that he is very unhappy with my care in the past because I have had to reschedule his office visits when he is late beyond our policy Home Meds and Allergies Active Medications Generic Name Dose Route Start Last Admin Trade Name Freq PRN Reason Stop Dose Admin Acetaminophen 650 mg 09/08/24 09:48 Acetaminophen 325 Mg Tablet PO Q4HR PRN Pain 1 to 4, or Fever Hydrocodone Bitart/Acetaminophen 1 tab 09/08/24 09:50 09/09/24 02:47 Hydrocod/Acetam 5/325 Mg Tablet PO 1 tab Q4HR PRN Administration Moderate Pain (Level 4-6) Ceftriaxone Sodium 1 gm 09/08/24 13:00 09/09/24 09:15 Ceftriaxone 1 Gm Vial IVP 1 gm DAILY UMU Administration Finasteride 5 mg 09/08/24 11:00 09/09/24 09:15 Finasteride 5 Mg Tablet PO 5 mg DAILY UMU Administration Latanoprost 1 drops 09/08/24 21:00 09/08/24 21:20 Latanoprost 0.005% Ophth Drops EACHEYE 1 drops QPM UMU Administration Melatonin 3 mg 09/08/24 18:00 09/08/24 21:21 Melatonin 3 Mg Tablet PO 3 mg QPM UMU Administration Morphine Sulfate 2 mg 09/08/24 09:50 09/08/24 09:57 Morphine 2 Mg/Ml Carpuject IVP 2 mg Q6HR PRN Administration Severe Pain (Level 7-10) Bicalutamide 50 Mg 1 each 09/09/24 09:00 09/09/24 09:16 Tablet PO Not Given DAILY UMU Sodium Chloride 10 ml 09/08/24 09:48 09/08/24 13:45 Sodium Chloride Flush 0.9% 10 Ml Syringe IVP 10 ml PRN PRN Administration NEEDED PER PROVIDER ORDERS Sodium Chloride 10 ml 09/08/24 09:48 09/09/24 09:16 Sodium Chloride Flush 0.9% 10 Ml Syringe IVP 10 ml 0100,0900,1700 UMU Administration Tamsulosin HCl 0.4 mg 09/08/24 11:00 09/09/24 09:15 Tamsulosin 0.4 Mg Capsule PO 0.4 mg DAILY UMU Administration latanoprost 0.005 % eye drops 1 drp ophthalmic (eye) QPM 05/17/24 bicalutamide 50 mg tablet 50 mg PO DAILY 09/08/24 finasteride 5 mg tablet 5 mg PO DAILY 09/08/24 tamsulosin 0.4 mg capsule 0.4 mg PO DAILY 09/08/24 Allergies Allergy/AdvReac Type Severity Reaction Status Date / Time No Known Allergies Allergy Unknown Unknown Verified 09/08/24 00:14 Vital Signs O2 Saturation: 93 Patient Review Patient Review Pertinent Tests Reviewed [facility] Medical History Medical History (Updated 09/08/24 @ 12:23 by Chichi Moon MD) Lipid screening (11/20/21) Lipid screening (06/18/23) Laceration without foreign body of other part of head, subsequent encounter (09/23/22) Laceration without foreign body of other part of head, initial encounter (09/20/22) Exertional shortness of breath (12/21/18) Dyspnea (12/22/17) Acute COVID-19 (06/15/22) Hard of hearing Glaucoma Coronary artery disease Gout History of cataract Surgical History Surgical History History of total left knee replacement Aortic valve replaced History of ventral hernia repair Social History Social History Smoking Status: Never smoker Second hand tobacco smoke exposure: No Do you dip or chew tobacco?: No Do you vape?: No Patient requests smoking cessation consult: No Initiate information on smoking cessation: No Relationship: Level: Assisted Home Mobility Equipment: Cane Do you feel safe in your home environment?: Yes Suffered physical, verbal, emotional, or financial abuse?: No Frequency: Occasional Substance Use: denies use Are you sexually active?: No POLST Patient has POLST: Yes Exam Exam NAD RRR CTA b/l elderly AOx[address], dark bloody effluent, no cbi running Assessment & Plan Assessment & Plan Assessment & Plan: 89-year-old male with history of likely locally invasive and metastatic aggressive prostate cancer now with gross hematuria likely relating to this. Currently on bicalutamide monotherapy -He and I had a long discussion regarding his current pathology. He reiterated his unhappiness with my care. I have asked if he is comfortable with me performing surgery today. He is adamant that he is comfortable. This was witnessed by EZE Balderas. -I recommend a cystoscopy, clot evacuation, fulguration of bleeding areas. We discussed the risks, benefits, and alternatives of the procedure. We discussed specific risks of infection, bleeding, injury to adjacent structures, need for additional procedures, failure of therapy. We discussed anesthesia risks including heart attack, stroke and . He states he wants to be full code including CPR -I recommend checking his PSA level tomorrow. He needs to remain on androgen deprivation therapy for life.
[2024-09-09] MEDS ORDERED: LIDOCAINE-PF 2% 10 ML AMP SUBQ ONE (14:52)
[2024-09-09] MEDS ORDERED: PROPOFOL 200 MG/20 ML VIAL IVP ONE (14:52)
[2024-09-09] MEDS ORDERED: fentaNYL 100 MCG/2 ML VIAL ONE (14:54)
--- NOTE | 2024-09-09 14:59 | ANESTHESIA PROCEDURE NOTE ---
Pre-Anesthesia VS, & Labs Diagnosis Surgical Diagnosis:: clots in bladder Procedure Procedure: cysto, clot evaluation, fulgaration of bladder Vitals Vital Signs: Temp Pulse Resp BP Pulse Ox 36.3 C L 69 18 94/56 L 93 09/09/24 08:45 09/09/24 08:45 09/09/24 08:45 09/09/24 08:45 09/09/24 14:42 NPO NPO: >8 hours Lab Results Current Lab Results: Laboratory Tests 09/09/24 05:52: WBC 8.8, RBC 2.86 L, Hgb 9.6 L, Hct 29.7 L, MCV 103.8 H, MCH 33.6 H, MCHC 32.3, RDW 13.8, Plt Count 173, MPV 10.7, Sodium 136, Potassium 3.7, Chloride 105, Carbon Dioxide 26, Anion Gap 5.0 L, BUN 20, Creatinine 1.4 H, E stimated GFR (MDRD) 48 L, Glucose 109 H, Calcium 7.7 L 09/08/24 05:45: PT 15.1 H, INR 1.4 H 09/08/24 02:15: WBC 8.8, RBC 3.64 L, Hgb 12.2 L, Hct 37.5 L, MCV 103.0 H, MCH 33.5 H, MCHC 32.5, RDW 13.4, Plt Count 213, MPV 10.6, Neut # (Auto) 5.8, Lymph # (Auto) 2.2, [place] # (Auto) 0.7, Eos # (Auto) 0.1, Baso # (Auto) 0.0, Absolute Nucleated RBC 0.00, Nucleated RBC % 0.0, Sodium 137, Potassium 3.8, Chloride 103, Carbon Dioxide 26, Anion Gap 8.0, BUN 12, Creatinine 0.9, Estimated GFR (MDRD) 79 L, Glucose 109 H, Calcium 8.8, Total Bilirubin 1.0, AST 18, ALT 10, A lkaline Phosphatase 231 H, Total Protein 6.8, Albumin 3.5, Globulin 3.3, Albumin/Globulin Ratio 1.1, Lipase 15 09/09/24 05:52 09/09/24 05:52 Meds/Allgy Home Medications Ambulatory Orders Medication Instructions Recorded Confirmed latanoprost 0.005 % eye drops 1 drp ophthalmic (eye) QPM 05/17/24 09/08/24 bicalutamide 50 mg tablet 50 mg PO DAILY 09/08/24 09/08/24 finasteride 5 mg tablet 5 mg PO DAILY 09/08/24 09/08/24 tamsulosin 0.4 mg capsule 0.4 mg PO DAILY 09/08/24 09/08/24 Allergies Allergies Allergy/AdvReac Type Severity Reaction Status Date / Time No Known Allergies Allergy Unknown Unknown Verified 09/08/24 00:14 [facility] Medical History Medical History (Updated 09/08/24 @ 12:23 by Chichi Moon MD) Lipid screening (11/20/21) Lipid screening (06/18/23) Laceration without foreign body of other part of head, subsequent encounter (09/23/22) Laceration without foreign body of other part of head, initial encounter (09/20/22) Exertional shortness of breath (12/21/18) Dyspnea (12/22/17) Acute COVID-19 (06/15/22) Hard of hearing Glaucoma Coronary artery disease Gout History of cataract Surgical History Surgical History History of total left knee replacement Aortic valve replaced History of ventral hernia repair Social History Social History Smoking Status: Never smoker Second hand tobacco smoke exposure: No Do you dip or chew tobacco?: No Do you vape?: No Patient requests smoking cessation consult: No Initiate information on smoking cessation: No Relationship: Level: Assisted Home Mobility Equipment: Cane Do you feel safe in your home environment?: Yes Suffered physical, verbal, emotional, or financial abuse?: No Frequency: Occasional Substance Use: denies use Are you sexually active?: No POLST Patient has POLST: Yes POLST Status: Full Code Anesthesia Exam (Expanded) Exam General: Alert and Oriented x3 Dental: WNL and Dentures full Upper Mouth Opening: Greater than 4 Fingerbreadths Neck Mobility: Normal Mallampati classification: II Thyromental Distance: greater than 6 cm Respiratory: Lungs clear Cardiovascular: Regular rate Plan Problem List (1) Acute urinary retention: Plan: CT abdomen shows extracapsular prostate 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 20 [place] placed by emergency room. Spoke with urology, recommend manual irrigation when clots off. Hold off on continuous bladder irrigation at this time. Will make patient n.p.o. tomorrow at 11 AM for planned procedure tomorrow evening. Continue IV Rocephin every 24 hours. Urology following. (2) Hydroureteronephrosis: Plan: See above. (3) Hematuria: Plan: See above. Qualifiers: Hematuria type: gross Qualified Code(s): R31.0 - Gross hematuria (4) Malignant neoplasm of prostate with [place] grade score of 8 to 10: Plan: Patient with recently diagnosed prostate cancer with extensive metastasis to bone, pulmonary nodules, pelvic adenopathy. Expresses interest in hospice informational at this time. (5) Paroxysmal atrial fibrillation: Plan: Patient is not on anticoagulation in the outpatient setting. Currently he is in atrial fibrillation, but is rate controlled. Continue to monitor. (6) Gout: Plan: Has not been on any medication for this for a while. Continue to monitor. Qualifiers: Chronicity: chronic Gout etiology: unspecified cause Gout site: u nspecified site Presence of tophus: without tophus Qualified Code(s): M1A.9XX0 - Chronic gout, unspecified, without tophus (tophi) (7) Coronary artery disease: Plan: Hold aspirin in setting of active hematuria. Qualifiers: Associated angina: unspecified whether angina present Coronary Disease- Associated Artery/Lesion type: unspecified vessel or lesion type [place] vs. transplanted heart: unspecified whether [place] or transplanted heart Qualified Code(s): I25.10 - Atherosclerotic heart disease of [place] coronary artery without angina pectoris Plan Anesthesia Type: General Consent for Procedure(s) Verified and Reviewed: Yes Code Status: Attempt Resuscitation ASA Classification ASA classification: 3-Severe systemic disease Is this case an emergency?: Yes
[2024-09-09] MEDS ORDERED: LIDOCAINE 2% URO-JET 5 ML SYRINGE UR ONE (15:38)
[2024-09-09] MEDS ORDERED: PHENYLEPHRINE HCL 0.5 MG/5 ML AMPULE ONE (16:16)
[2024-09-09] MEDS ORDERED: ePHEDrine 50 MG/ML VIAL IVP ONE (16:25)
[2024-09-09] MEDS ORDERED: fentaNYL 100 MCG/2 ML VIAL IVP PRN (16:27)
[2024-09-09] MEDS ORDERED: MORPHINE 2 MG/ML CARPUJECT IVP PRN (16:27)
[2024-09-09] MEDS ORDERED: NALOXONE 0.4 MG/ML VIAL IVP PRN (16:27)
[2024-09-09] MEDS ORDERED: ONDANSETRON 4 MG/2 ML VIAL IVP PRN (16:27)
[2024-09-09] MEDS ORDERED: METOCLOPRAMIDE 10 MG/2 ML VIAL IVP PRN (16:27)
[2024-09-09] MEDS ORDERED: ATROPINE ABBOJECT 1 MG/10 ML SYRINGE IVP PRN (16:27)
[2024-09-09] MEDS ORDERED: HYDROmorphone 0.5 MG/0.5 ML SYRINGE IVP PRN (16:27)
[2024-09-09] MEDS ORDERED: ONDANSETRON 4 MG/2 ML VIAL ONE (16:47)
--- NOTE | 2024-09-09 16:58 | OPERATIVE REPORT ---
Operative Report General Admit Date: 09/08/24 Procedure Data: Operation Date: 09/09/24 15:30 Proposed Procedures p Cystoscopy, Evacutation of blood clot(Not Applicable) - Addi Esposito MD Actual Procedures p Cystoscopy, Evacutation of blood clot and fulguration of bleeding and transurethral resection of prostate(Not Applicable) - Addi Esposito MD Anesthesia Type General Case Staff Anesthesia Provider: Kellie Balderas Case Times Procedure Start: 09/09/24 16:21 Time out: 09/09/24 16:21 Pre-Op Diagnosis: hematuria Post Op Diagnosis: locally invasive prostate cancer, hematuria Procedure Note Estimated Blood Loss (ml): 20 Pathology: prostate chips Indications: hematuria Findings: long, large prostate, firm, narrow outflow, diffuse oozing Complications: none Other Other Information/Narrative: After informed consent was obtained the patient was brought to the OR and laid in the supine position. The patient was anesthetized per anesthesia protocols. His catheter was removed. He was then placed in the dorsolithotomy position and prepped and draped in the usual sterile fashion. A formal timeout was performed reconfirming the patient and procedure A 26 [place] resectoscope was advanced into his urethra but was not long enough to reach his bladder and so this was switched for a long resectoscope. His prostate was noted to be quite enlarged and along with a tight bladder neck orifice. The prostate appeared very firm. There is diffuse oozing from the prostate tissue. It appeared markedly atypical consistent with his locally invasive prostate cancer. His bladder had a large volume of clot in it and it was evacuated out using an Ellik evacuator this was about 400 cc of clot. We could not see any particular area of the bladder wall bleeding but it was diffusely erythematous Using a loop electrocautery and the bipolar setting we fulgurated all bleeding areas. There were some prostate tissue that was invaginating into the lumen and appeared quite obstructive along with bleeding and so using loop electrocautery we resected these areas and sent them for analysis as a prostate chip His trigone was edematous and we could not identify the ureteral orifices with confidence. After there was good hemostasis we removed his resectoscope and placed a 22 [place] three-way Dickinson catheter with 50 cc in the balloon and placed him on gentle traction. He remained on continuous bladder irrigation which appeared clear. The patient was reversed of anesthesia and brought to the PACU without further incident. He will return to the floor for further monitoring. This concluded the procedure and the patient tolerated the procedure well.
--- NOTE | 2024-09-09 17:39 | ANESTHESIA POST OP EVALUATION ---
Anesthesia Post Eval Post Anesthesia Eval Vitals: Last Vital Signs Temp 36.0 C L 09/09/24 17:25 Pulse 116 H 09/09/24 17:25 Resp 17 09/09/24 17:25 BP 89/58 L 09/09/24 17:25 Pulse Ox 98 09/09/24 17:25 CV Function Including HR & BP: Stable Pain Control: Satisfactory Nausea & Vomiting: Negative Mental Status: Baseline Respiratory Status: Airway Patent Hydration Status: Satisfactory Anesthesia Complications: None
[2024-09-09] MEDS: LACTATED RINGERS 1,000 ML IV SCH (18:03)
[2024-09-10 05:58] LABS: HCT - HEMATOCRIT 30.6 % (42.0-52.0); HGB - HEMOGLOBIN 9.6 g/dL (14.0-18.0); MEAN CORPUSCULAR HEMOGLOBIN 33.1 pg (27.0-31.0); MEAN CORPUSCULAR HGB CONC 31.4 g/dL (32.0-36.0); MEAN CORPUSCULAR VOLUME 105.5 fL (80.0-94.0); MEAN PLATELET VOLUME 11.1 fL (7.4-11.4); RED BLOOD COUNT 2.9 10^6/uL (4.70-6.10); RED CELL DISTRIBUTION WIDTH 13.7 % (12.0-15.0); WHITE BLOOD COUNT 9.7 x10^3/uL (4.8-10.8)
[2024-09-10 06:11] LABS: MAGNESIUM 1.9 mg/dL (1.7-2.3)
[2024-09-10 06:16] LABS: CALCIUM 7.4 mg/dL (8.5-10.3); CREATININE 0.9 mg/dL (0.6-1.3); POTASSIUM 3.6 mmol/L (3.5-4.5)
--- NOTE | 2024-09-10 07:36 | PROVIDER PROGRESS NOTE ---
Subjective Prog Note Date Prog Note Date: 09/10/24 Prog Note Time: 07:36 Subjective Pt reports feeling: Improved Subjective: Patient feels better today he had his clot evacuation and fulguration yesterday.. Current Medications Current Medications Current Medications: Current Medications Generic Name Dose Route Start Last Admin Trade Name Freq PRN Reason Stop Dose Admin Acetaminophen 650 mg 09/08/24 09:48 Acetaminophen 325 Mg Tablet PO Q4HR PRN Pain 1 to 4, or Fever Hydrocodone Bitart/Acetaminophen 1 tab 09/08/24 09:50 09/09/24 02:47 Hydrocod/Acetam 5/325 Mg Tablet PO 1 tab Q4HR PRN Administration Moderate Pain (Level 4-6) Ceftriaxone Sodium 1 gm 09/08/24 13:00 09/09/24 09:15 Ceftriaxone 1 Gm Vial IVP 1 gm DAILY [facility] Administration Finasteride 5 mg 09/08/24 11:00 09/09/24 09:15 Finasteride 5 Mg Tablet PO 5 mg DAILY [facility] Administration Latanoprost 1 drops 09/08/24 21:00 09/09/24 20:54 Latanoprost 0.005% Ophth Drops EACHEYE 1 drops QPM [facility] Administration Melatonin 3 mg 09/08/24 18:00 09/09/24 20:54 Melatonin 3 Mg Tablet PO 3 mg QPM U[facility] Administration Metoclopramide HCl 10 mg 09/09/24 16:27 Metoclopramide 10 Mg/2 Ml Vial IVP Q6HR PRN N/V not relieved by Zofran Morphine Sulfate 2 mg 09/08/24 09:50 09/08/24 09:57 Morphine 2 Mg/Ml Carpuject IVP 2 mg Q6HR PRN Administration Severe Pain (Level 7-10) Bicalutamide 50 Mg 1 each 09/09/24 09:00 09/09/24 09:16 Tablet PO Not Given DAILY [facility] Sodium Chloride 10 ml 09/08/24 09:48 09/08/24 13:45 Sodium Chloride Flush 0.9% 10 Ml Syringe IVP 10 ml PRN PRN Administration NEEDED PER PROVIDER ORDERS Sodium Chloride 10 ml 09/08/24 09:48 09/10/24 02:29 Sodium Chloride Flush 0.9% 10 Ml Syringe IVP Not Given 0100,0900,1700 UMU Tamsulosin HCl 0.4 mg 09/08/24 11:00 09/09/24 09:15 Tamsulosin 0.4 Mg Capsule PO 0.4 mg DAILY [facility] Administration Objective Vital Signs/Intake & Output Reviewed Vital Signs: Yes Vital Signs: Vital Signs x48h Temp Pulse Resp BP Pulse Ox 09/10/24 05:09 36.7 C 93 22 105/69 95 09/10/24 01:09 36.6 C 93 20 100/69 93 09/10/24 00:15 36.6 C 85 20 95/59 L 96 Intake & Output: Intake & Output 09/07/24 09/08/24 09/09/24 09/10/24 23:59 23:59 23:59 23:59 Intake Total 1140 / 1140 1999 / 1999 3425 / 3425 Output Total 3840 / 3840 5455 / 5455 2175 / 2175 Balance -2700 / -2700 -3455 / -3455 1250 / 1250 Weight (kg) 104 kg Objective General Appearance: positive No acute distress (Lying in bed. Three-way Dickinson catheter in place. Extremely slow drip CBI and clear with slight red tinge effluent. Hemoglobin stable 9.6. Creatinine improved 0.9) Lab Results 09/10/24 05:33 09/10/24 05:33 Other Labs: Lab Results x24hrs 09/10/24 Range/Units 05:33 WBC 9.7 (4.8-10.8) x10^3/uL RBC 2.90 L (4.70-6.10) 10^6/uL Hgb 9.6 L (14.0-18.0) g/dL Hct 30.6 L (42.0-52.0) % MCV 105.5 H (80.0-94.0) fL MCH 33.1 H (27.0-31.0) pg MCHC 31.4 L (32.0-36.0) g/dL RDW 13.7 (12.0-15.0) % Plt Count 164 (130-450) 10^3/uL MPV 11.1 (7.4-11.4) fL Sodium 135 (135-145) mmol/L Potassium 3.6 (3.5-4.5) mmol/L Chloride 103 (101-111) mmol/L Carbon Dioxide 27 (21-32) mmol/L Anion Gap 5.0 L (6-13) BUN 19 (6-20) mg/dL Creatinine 0.9 (0.6-1.3) mg/dL Estimated GFR (MDRD) 79 L (>89) Glucose 103 (74-104) mg/dL Calcium 7.4 L (8.5-10.3) mg/dL Magnesium 1.9 (1.7-2.3) mg/dL Assessment/Plan Problem List (1) Hydroureteronephrosis: Impression: Likely related to bladder outlet obstruction. Creatinine normalized. Will follow-up as outpatient (2) Hematuria: Impression: Secondary to infiltrative locally advanced prostate cancer. Now improved after clot evacuation and fulguration and minor TURP procedure Please send patient home with Dickinson catheter in place. My office will arrange follow-up in 1 to 2 weeks for catheter removal and void trial He should not start blood thinning medications in the future Okay for discharge from urology perspective Please ensure catheter teaching performed Qualifiers: Hematuria type: gross Qualified Code(s): R31.0 - Gross hematuria (3) Malignant neoplasm of prostate with Alex grade score of 8 to 10: Impression: Widely metastatic prostate cancer and locally aggressive and infiltrative prostate cancer I have increased his bicalutamide dose to 150 mg/day. Please have him fill this prescription and start taking it. He needs to follow-up with medical oncology for further care of this.
[2024-09-10] MEDS: ACETAMINOPHEN 325 MG TABLET PO PRN (08:37)
[2024-09-10] MEDS: DOCUSATE SODIUM 250 MG CAPSULE PO SCH (08:37)
[2024-09-10] MEDS: BISACODYL 10 MG SUPP PR ONE (08:37)
[2024-09-10] MEDS: polyethylene glycoL 3350 17 GM PACKET PO SCH (08:38)
[2024-09-10] MEDS ORDERED: BICALUTAMIDE 50 MG PO SCH (09:00)
[2024-09-10] MEDS ORDERED: TAMSULOSIN 0.4 MG CAPSULE PO SCH (09:00)
[2024-09-10] MEDS ORDERED: FINASTERIDE 5 MG TABLET PO SCH (09:00)
--- NOTE | 2024-09-10 13:52 | PROVIDER PROGRESS NOTE ---
Subjective Subjective Subjective: Patient is doing well this morning. He states he feels better than yesterday after this manual irrigation, CBI, clot evacuation was done. His CBI was stopped this morning. Urology was spoken with, and they are okay with him being discharged today with the Dickinson in place. Dr. Esposito's office will arrange for follow-up in 1 to 2 weeks for catheter removal and trial of void. Hospice team was consulted for informational. They had a long discussion with him, and he stated that he would like to speak with oncology in regards to his treatment options before committing to hospice. Current Medications Current Medications Current Medications: Current Medications Generic Name Dose Route Start Last Admin Trade Name Freq PRN Reason Stop Dose Admin Acetaminophen 650 mg 09/08/24 09:48 09/10/24 08:37 Acetaminophen 325 Mg Tablet PO 650 mg Q4HR PRN Administration Pain 1 to 4, or Fever Hydrocodone Bitart/Acetaminophen 1 tab 09/08/24 09:50 09/09/24 02:47 Hydrocod/Acetam 5/325 Mg Tablet PO 1 tab Q4HR PRN Administration Moderate Pain (Level 4-6) Ceftriaxone Sodium 1 gm 09/08/24 13:00 09/10/24 08:37 Ceftriaxone 1 Gm Vial IVP 1 gm DAILY [facility] Administration Docusate Sodium 250 - 500 mg 09/10/24 09:00 09/10/24 08:37 Docusate Sodium 250 Mg Capsule PO 250 mg DAILY [facility] Administration Finasteride 5 mg 09/08/24 11:00 09/10/24 08:38 Finasteride 5 Mg Tablet PO 5 mg DAILY [facility] Administration Latanoprost 1 drops 09/08/24 21:00 09/09/24 20:54 Latanoprost 0.005% Ophth Drops EACHEYE 1 drops QPM [facility] Administration Melatonin 3 mg 09/08/24 18:00 09/09/24 20:54 Melatonin 3 Mg Tablet PO 3 mg QPM [facility] Administration Metoclopramide HCl 10 mg 09/09/24 16:27 Metoclopramide 10 Mg/2 Ml Vial IVP Q6HR PRN N/V not relieved by Zofran Morphine Sulfate 2 mg 09/08/24 09:50 09/08/24 09:57 Morphine 2 Mg/Ml Carpuject IVP 2 mg Q6HR PRN Administration Severe Pain (Level 7-10) Bicalutamide 50 Mg 1 each 09/09/24 09:00 09/10/24 08:38 Tablet PO Not Given DAILY [facility] Polyethylene Glycol 17 gm 09/10/24 09:00 09/10/24 08:38 Polyethylene Glycol 3350 17 Gm Packet PO 17 gm DAILY [facility] Administration Sodium Chloride 10 ml 09/08/24 09:48 09/08/24 13:45 Sodium Chloride Flush 0.9% 10 Ml Syringe IVP 10 ml PRN PRN Administration NEEDED PER PROVIDER ORDERS Sodium Chloride 10 ml 09/08/24 09:48 09/10/24 08:38 Sodium Chloride Flush 0.9% 10 Ml Syringe IVP 10 ml 0100,0900,1700 UMU Administration Tamsulosin HCl 0.4 mg 09/08/24 11:00 09/10/24 08:37 Tamsulosin 0.4 Mg Capsule PO 0.4 mg DAILY [facility] Administration Objective Vital Signs/Intake & Output Reviewed Vital Signs: Yes Vital Signs: Vital Signs x48h Temp Pulse Resp BP Pulse Ox 09/10/24 09:00 97.7 F 80 18 90/58 L 96 Intake & Output: Intake & Output 09/07/24 09/08/24 09/09/24 09/10/24 23:59 23:59 23:59 23:59 Intake Total 1140 / 1140 1999 / 1999 4785 / 4785 Output Total 3840 / 3840 5455 / 5455 5675 / 5675 Balance -2700 / -2700 -3455 / -3455 -890 / -890 Weight (kg) 104 kg Objective General Appearance: positive No acute distress and Alert; negative Anxious or Lethargic Eyes Bilateral: positive Normal inspection, PERRL and EOMI ENT: positive ENT inspection nml, Pharynx nml and No signs of dehydration Neck: positive Nml inspection, Thyroid nml and No JVD Respiratory: positive Chest non-tender, No respiratory distress and Breath sounds nml; negative Wheezes, Rales or Rhonchi Cardiovascular: positive No murmur and Irregularly irregular; negative Tachycardia, Bradycardia, Systolic murmur or Diastolic murmur Abdomen: positive Non-tender; negative Guarding, Rebound, Hepatomegaly, Splenomegaly or Mass Back: positive Nml inspection; negative CVA tenderness (R) or CVA tenderness (L) Skin: positive Color nml, No rash and Warm Extremities: positive Non-tender, Full ROM, Nml appearance and No pedal edema Neurologic/Psychiatric: positive Oriented x3 Comments/Other: Dickinson with gross blood noted. Lab Results 09/10/24 05:33 09/10/24 05:33 Other Labs: Lab Results x24hrs 09/10/24 09/10/24 Range/Units 08:54 05:33 WBC 9.7 (4.8-10.8) x10^3/uL RBC 2.90 L (4.70-6.10) 10^6/uL Hgb 9.6 L (14.0-18.0) g/dL Hct 30.6 L (42.0-52.0) % MCV 105.5 H (80.0-94.0) fL MCH 33.1 H (27.0-31.0) pg MCHC 31.4 L (32.0-36.0) g/dL RDW 13.7 (12.0-15.0) % Plt Count 164 (130-450) 10^3/uL MPV 11.1 (7.4-11.4) fL Sodium 135 (135-145) mmol/L Potassium 3.6 (3.5-4.5) mmol/L Chloride 103 (101-111) mmol/L Carbon Dioxide 27 (21-32) mmol/L Anion Gap 5.0 L (6-13) BUN 19 (6-20) mg/dL Creatinine 0.9 (0.6-1.3) mg/dL Estimated GFR (MDRD) 79 L (>89) Glucose 103 (74-104) mg/dL Calcium 7.4 L (8.5-10.3) mg/dL Magnesium 1.9 (1.7-2.3) mg/dL Total PSA 15.289 H (0.000-2.000) ng/mL Diagnostic Imaging Diagnostic Imaging Results: positive Final report reviewed Assessment/Plan Problem List (1) Acute urinary retention: Impression: CT abdomen shows extracapsular prostate 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 Completed cystoscopy, clot removal yesterday with urology. Is cleared from their standpoint for discharge. Patient will be discharged with Dickinson. Is pretty weak at baseline, and lives by himself with caregiver. PT/OT consulted. If they think he is able to go home, will likely discharge today. If he needs SNF, will wait for SNF placement. Continue IV Rocephin every 24 hours - can likely transition to oral antibiotics tomorrow. (2) Hydroureteronephrosis: Impression: See above. (3) Hematuria: Impression: See above. Qualifiers: Hematuria type: gross Qualified Code(s): R31.0 - Gross hematuria (4) Malignant neoplasm of prostate with [place] grade score of 8 to 10: Impression: Patient with recently diagnosed prostate cancer with extensive metastasis to bone, pulmonary nodules, pelvic adenopathy. Expresses interest in hospice informational at this time - consulted. After long discussion with them, he decided that he would like to speak with oncology and see what his options are prior to enrolling in hospice. (5) Paroxysmal atrial fibrillation: Impression: Patient is not on anticoagulation in the outpatient setting. Currently he is in atrial fibrillation, but is rate controlled. Continue to monitor. (6) Gout: Impression: Has not been on any medication for this for a while. Continue to monitor. Qualifiers: Chronicity: chronic Gout etiology: unspecified cause Gout site: u nspecified site Presence of tophus: without tophus Qualified Code(s): M1A.9XX0 - Chronic gout, unspecified, without tophus (tophi) (7) Coronary artery disease: Impression: Hold aspirin in setting of active hematuria. Qualifiers: Associated angina: unspecified whether angina present Coronary Disease- Associated Artery/Lesion type: unspecified vessel or lesion type [place] vs. transplanted heart: unspecified whether [place] or transplanted heart Qualified Code(s): I25.10 - Atherosclerotic heart disease of [place] coronary artery without angina pectoris
--- NOTE | 2024-09-10 14:03 | PROVIDER PROGRESS NOTE ---
Progress Note Progress Note Progress Note: 89yo male w/prostate cancer w/mets (pelvic adenopathy, osteoblastic sacral disease, pulmonary nodules) dx'd last month. He developed dysuria in May 2024. He was seen in the walk-in clinic for nocturia and dysuria 05/17/24. He thought he had a UTI. He was treated and referred to urology. He saw urology who did PVRs which were negative. He was given additional abx. He then presented to the ED on 05/26 and was found to have PVR > 300. Mendez was placed, but he would not keep it in at d/c. Returned to the ED w/penile pain, nocturia, dysuria 06/26. Continued to decline mendez (PVR 200 cc). Had f/u with urology a few days later. Underwent cystoscopy 07/04 which revealed a fungating mass. PSA was elevated at 27. At his f/u visit, pt agreed to prostate bx, which was done 08/06. Biopsies revealed Grade 5 prostate adenoca. Pt had a f/u appt 08/15 but didn't show up. He presented to the ED 09/08 c/o hematuria and severe pain w/urination. CT showed extracapsular prostate cancer invading the bladder and seminal vesicles resulting in bilateral ureteral obstruction greater on the left and intravesicular hemorrhage. Local and distant metastatic disease includes pelvic adenopathy, osteoblastic sacral disease, pulmonary nodules. Today, he went to the OR for cystoscopy, evacutation of blood clot and fulguration of bleeding and transurethral resection of prostate. He is now receiving CBI. He states he is no longer in any pain. He c/o having not had a BM x 6 days. He typically runs a "4 day cycle" of constipation and diarrhea. He takes mag citrate q4 days. He expressed that he is unhappy w/ "the system" and believes he has had "too many pain days". He also states he believes Dr. Esposito is to blame for his cancer. He believes Dr. Esposito didn't see him between April when he says he was dx'd w/cancer and August when he was dx'd w/"terminal cancer". Pt lives alone w/his dog in a trailer. 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 He says he hopes to leave a legacy behind and has plans to get in touch w/[employer] about earthquake proof houses he has designed, an airport, as well as 2 firetrucks that will put out fires faster than the current models. Exam: Gen-elderly male, forgetful, very talkative, NAD HEENT - NC, face symmetric Chest- CTAB CV-RRR Abd - soft, NT/ND, BTx4, nontender, nonreducible ventral hernia noted, old midline surgical scar Extr - warm, no C/C/E A/P: 1) Metastatic prostate CA 2) Constipation 3) Hematuria 4) Macrocytic anemia Pt is currently not in any pain. He is receiving CBI. Would continue mendez at d/c. He is hopeful to continue CBI at home. Explained that will not be the case. He wants to extend his life as long as possible. Encouraged him to meet w/oncology after d/c home. He states he wants to double his anti-androgen therapy; advised to take medications only as prescribed. Reviewed hospice philosophy w/pt, but it was difficult as he frequently talked over other people in the room (including me). Encouraged him to consider a daily bowel regimen. He was not too receptive. Did want an enema, as he notes he hasn't had a BM in 6 days. I shared info w/Dr. Moon. Encouraged him (and his friends/neighbors) to reach out to hospice if he decides he wants to pursue comfort directed care. I do suspect pt has a mild to moderate cognitive impairment given his propensity to repeat himself frequently.
--- NOTE | 2024-09-10 15:09 | OT Plan of Care ---
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 Surgical History (Updated 08/06/24 @ 08:10 by Lala Middleton CRNA) History of total left knee replacement Aortic valve replaced History of ventral hernia repair Medical History (Updated 09/08/24 @ 12:23 by Chichi Moon MD) Lipid screening (11/20/21) Lipid screening (06/18/23) Laceration without foreign body of other part of head, subsequent encounter (09/23/22) Laceration without foreign body of other part of head, initial encounter (09/20/22) Exertional shortness of breath (12/21/18) Dyspnea (12/22/17) Acute COVID-19 (06/15/22) Hard of hearing Glaucoma Coronary artery disease Gout History of cataract Assessment Assessment Pt is an 89 y/o male with PMHx prostate cancer; presenting with Acute urinary retention CT abdomen shows extracapsular prostate 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 Spoke with urology, recommend manual irrigation when clots off. Hold off on continuous bladder irrigation at this time. Cleared for therapy by MD. Met supine in bed, A& Ox4 Follows all commands appropriately. Performed supine to sit CGA, sit to stand MIN A, and ambulation 15ft bed to chair MIN A using RW Assist from [facility] for management of CBI. Currently MIN A UB, MOD A LB ADL including brief change and mendez management. Overall presents with decreased endurance, activity tolerance, and ADL status. Will benefit from cont OT services during acute stay. Rec d/c to SNF VS Home with 24hr assist and OT/PT services pending progress. Goals - Activities of Daily Living Improve Upper Extremity Modified Independent Dressing to: Improve Lower Extremity Modified Independent Dressing to: Improve Grooming/Hygiene to: Modified Independent Improve Bathing to: Modified Independent Improve Toileting to: Modified Independent Plan Duration Until discharge -Discharge Recommendations [facility] Transport Needs at Discharge [facility] Comment Vs home with 24 HR assist
[2024-09-11 06:04] LABS: HCT - HEMATOCRIT 29.2 % (42.0-52.0); HGB - HEMOGLOBIN 9.3 g/dL (14.0-18.0); MEAN CORPUSCULAR HEMOGLOBIN 33.2 pg (27.0-31.0); MEAN CORPUSCULAR HGB CONC 31.8 g/dL (32.0-36.0); MEAN CORPUSCULAR VOLUME 104.3 fL (80.0-94.0); MEAN PLATELET VOLUME 10.8 fL (7.4-11.4); RED BLOOD COUNT 2.8 10^6/uL (4.70-6.10); RED CELL DISTRIBUTION WIDTH 13.5 % (12.0-15.0); WHITE BLOOD COUNT 8.2 x10^3/uL (4.8-10.8)
[2024-09-11 06:21] LABS: CALCIUM 7.5 mg/dL (8.5-10.3); CREATININE 0.8 mg/dL (0.6-1.3); MAGNESIUM 1.9 mg/dL (1.7-2.3); POTASSIUM 3.6 mmol/L (3.5-4.5)
--- NOTE | 2024-09-11 14:25 | PT Plan of Care ---
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 Medical History (Updated 09/08/24 @ 12:23 by Chichi Moon MD) Lipid screening (11/20/21) Lipid screening (06/18/23) Laceration without foreign body of other part of head, subsequent encounter (09/23/22) Laceration without foreign body of other part of head, initial encounter (09/20/22) Exertional shortness of breath (12/21/18) Dyspnea (12/22/17) Acute COVID-19 (06/15/22) Hard of hearing Glaucoma Coronary artery disease Gout History of cataract Surgical History (Updated 08/06/24 @ 08:10 by Lala Middleton CRNA) History of total left knee replacement Aortic valve replaced History of ventral hernia repair Balance/ Functional Results Sitting Balance Good Standing Balance Fair Assessment Assessment Pt is an 89yo M referred for PT eval d/t limited mobility, admitted d/t hematuria, now with CBI running. Pt is indep at baseline, lives in mobile home with dog "Hero". Has a friend/CG " Rahel" and a neighbor that help with cooking/ cleaning/errands. Upon PT eval, pt is sleeping but agreeable to wake up and participate. Awakens easily and transfers to EOB with CGA. STS w/ FWW and minAx1-2. Fair+ standing balance and amb x15' in room to b/s chair with 2 person assist d/t CBI and moderate instability. Pt fatigues rapidly and benefits from assist to reposition in b/s chair. Given above imp airments , pt will benefit from PT in acute setting to improve endurance and reduce fall risk. When medically clear, PT rec dc to SNF for further rehab as pt has ongoing urinary concerns require medical intervention and is not safe to transfer in/out of trailer (4-5 steps) for outpatient level of care. Goals Improve bed mobility to: Modified Independent Improve supine to sit to: Modified Independent Improve sit to stand to: Contact Guard Improve pivot transfer ability Contact Guard to: Improve sit to supine to: Contact Guard Improve gait ability to: CGA Assistive Device Used: Front Wheeled Walker Improve Sitting Balance to: Good Improve Standing Balance to: Good PT Plan of Care Frequency 1-2x/day Duration Until goals are met Discharge Recommendations Discharge Location [facility] Facility DC Equipment Recommended Front wheeled walker Transport Needs at Discharge Wheelchair van
[2024-09-12] MEDS: SODIUM CHLORIDE 0.9% 500 ML IV ONE ×2 (00:47→06:16)
--- NOTE | 2024-09-12 05:21 | PROVIDER PROGRESS NOTE ---
Ore Fielder Note Ore Fielder Note Ore Fielder Note: per nurse Patient with with blood pressure 87/64, with heart rate 92. Currently asymptomatic. Saline bolus and CBC, CMP, magnesium ordered
[2024-09-12 06:05] LABS: BASOPHILS % (AUTO) 0.5 %; EOSINOPHILS # (AUTO) 0.3 10^3/uL (0.0-0.7); EOSINOPHILS % (AUTO) 3.8 %; HCT - HEMATOCRIT 28.9 % (42.0-52.0); HGB - HEMOGLOBIN 9.2 g/dL (14.0-18.0); LYMPHOCYTES # (AUTO) 1.4 10^3/uL (1.5-3.5); LYMPHOCYTES % (AUTO) 18.7 %; MEAN CORPUSCULAR HEMOGLOBIN 33.2 pg (27.0-31.0); MEAN CORPUSCULAR HGB CONC 31.8 g/dL (32.0-36.0); MEAN CORPUSCULAR VOLUME 104.3 fL (80.0-94.0); MONOCYTES # (AUTO) 0.8 10^3/uL (0.0-1.0); MONOCYTES % (AUTO) 10.1 %; NEUTROPHILS # (AUTO) 5.1 10^3/uL (1.5-6.6); NEUTROPHILS % (AUTO) 66.4 %; PLT - PLATELET COUNT 162 10^3/uL (130-450); RED BLOOD COUNT 2.77 10^6/uL (4.70-6.10); RED CELL DISTRIBUTION WIDTH 13.5 % (12.0-15.0); WHITE BLOOD COUNT 7.7 x10^3/uL (4.8-10.8)
[2024-09-12 06:20] LABS: ALBUMIN 2.5 g/dL (3.2-5.5); BILIRUBIN,TOTAL 0.7 mg/dL (0.2-1.0); CALCIUM 7.5 mg/dL (8.5-10.3); CREATININE 0.8 mg/dL (0.6-1.3); MAGNESIUM 1.9 mg/dL (1.7-2.3); POTASSIUM 3.5 mmol/L (3.5-4.5); TOTAL PROTEIN 4.9 g/dL (6.4-8.9)
--- NOTE | 2024-09-12 08:33 | PROVIDER PROGRESS NOTE ---
Progress Note Progress Note Progress Note: September 11, 2024 4 PM Chart reviewed. I am the new hospitalist on service. He is an 89-year-old white male who was diagnosed with prostate cancer that is metastatic to lymph nodes, bone, lungs and presented with dysuria and urinary retention. A Dickinson was placed. 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 Urology performed cystoscopy and clot removal in September 09. CBI was stopped. The patient lives by himself and relies on a caregiver to come by 2 days a week. And requires friends to come by and visit. He is weak, unable to really safely be discharged and he is refusing to be placed for rehab at this time. Urology feels it safe for him to go home with a Dickinson. The patient wants to seek oncology opinion first for his metastatic prostate cancer and then if he does not like what the treatment will be will most likely go to hospice. PT and OT have seen him and have recommended hospice. Today, no changes. Continues to insist that he is able to take care of himself. But he is clearly unable to get up by himself. Would be unable to be by himself 28/02. Speech is slightly hoarse. Low. Says he always talks this way. Hurts all over. Denies chest pain, shortness of breath. Denies any abdominal pain and a ches where the Dickinson is in place. Exam: Temperature 36.5, heart rate 69, respirations 19, 97% saturated. Blood pressure 107/68. Tall white male at 6 foot tall, 104 kg. Shotty neck adenopathy but no JVD. Supple. Lungs have diminished breath sounds at the bases and he had 1 rhonchi in the right midlung that cleared when I had him do a deep cough. No respiratory distress. No increased respiratory effort. Regular rate and rhythm. Abdomen is soft, nontender, hypoactive bowel sounds. I do not feel any masses. Dickinson in place draining urine with hematuria. He continues to have a three-way catheter in place. Extremities with trace edema. Neurologically this gentleman is very hard of hearing. Perseverates. Keeps on saying he wants to meghan everyone and cannot stay on topic. Speech can sometimes be garbled and I cannot hear it well because of tongue movement. But he is oriented to person, place, time and situation. With the help of nursing, he is able to get up and sit in a chair. He is a partial assist with all activities, and a standby assist with oral care. I have reviewed his labs and sodium is 133, potassium 3.6. BUN 15, creatinine 0.8. Total PSA is 15.289. CBC shows a downtrending hemoglobin. His normal hemoglobin is 14.3. When he was admitted he was 12.2 and today he is 9.3. He is macrocytic at 104.3. Review of his EMR shows him to be chronically macrocytic to 2017 and gradually increasing in size. Platelets are 148. Urine culture has not been done with this acute episode of care. Assessment/Plan Problem List (1) Acute urinary retention: Impression: CT abdomen shows extracapsular prostate 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 Completed cystoscopy, clot removal 09/09/24 with urology. Is cleared from their standpoint for discharge. Patient will be discharged with Dickinson. Is pretty weak at baseline, and lives by himself with caregiver. PT/OT consulted. And they do not think the patient can go home. He is refusing to go. I did speak to his caregiver Rahel. She states that there is no possibility for her to be 7 days a week nor can she be 24/7. She plans on coming to talk to him. She knows him really well. If it is not practical for him to go home she will convince him to go to assisted facility for rehab so he can go home. Continue IV Rocephin every 24 hours - can likely transition to oral antibiotics tomorrow. I will change to levaquin. (2) Hydroureteronephrosis: Impression: See above. (3) Hematuria with acute blood loss anemia Impression: See above. - I will transfuse if hgb drops < 7. I will monitor daily hgb. Qualifiers: Hematuria type: gross Qualified Code(s): R31.0 - Gross hematuria (4) Malignant neoplasm of prostate with [place] grade score of 8 to 10: Impression: Patient with recently diagnosed prostate cancer with extensive metastasis to bone, pulmonary nodules, pelvic adenopathy. Expresses interest in hospice informational at this time - consulted. After long discussion with them, he decided that he would like to speak with oncology and see what his options are prior to enrolling in hospice. (5) Paroxysmal atrial fibrillation: Impression: Patient is not on anticoagulation in the outpatient setting. Currently he is in atrial fibrillation, but is rate controlled. Continue to monitor. (6) Gout: Impression: Has not been on any medication for this for a while. Continue to monitor. Qualifiers: Chronicity: chronic Gout etiology: unspecified cause Gout site: unspecified site Presence of tophus: without tophus Qualified Code(s): M1A.9XX0 - Chronic gout, unspecified, without tophus (tophi) (7) Coronary artery disease: Impression: Hold aspirin in setting of active hematuria. Qualifiers: Associated angina: unspecified whether angina present Coronary Disease- Associated Artery/Lesion type: unspecified vessel or lesion type [place] vs. transplanted heart: unspecified whether [place] or transplanted heart Qualified Code(s): I25.10 - Atherosclerotic heart disease of [place] coronary artery without angina pectoris
--- NOTE | 2024-09-12 12:55 | PROVIDER PROGRESS NOTE ---
Subjective Prog Note Date Prog Note Date: 09/12/24 Subjective Subjective: complains that he he constipated. no BM x 3 days. wants the CBI back. Wants to continue to pursue treatment and in the patient's words "lives as long as possible". Very concerned about having a bowel movement. Current Medications Current Medications Current Medications: Current Medications Generic Name Dose Route Start Last Admin Trade Name Freq PRN Reason Stop Dose Admin Acetaminophen 650 mg 09/08/24 09:48 09/10/24 08:37 Acetaminophen 325 Mg Tablet PO 650 mg Q4HR PRN Administration Pain 1 to 4, or Fever Hydrocodone Bitart/Acetaminophen 1 tab 09/08/24 09:50 09/09/24 02:47 Hydrocod/Acetam 5/325 Mg Tablet PO 1 tab Q4HR PRN Administration Moderate Pain (Level 4-6) Docusate Sodium 250 - 500 mg 09/10/24 09:00 09/12/24 08:50 Docusate Sodium 250 Mg Capsule PO 250 mg DAILY UMU Administration Finasteride 5 mg 09/08/24 11:00 09/12/24 08:49 Finasteride 5 Mg Tablet PO 5 mg DAILY UMU Administration Latanoprost 1 drops 09/08/24 21:00 09/11/24 20:25 Latanoprost 0.005% Ophth Drops EACHEYE 1 drops QPM UMU Administration Melatonin 3 mg 09/08/24 18:00 09/11/24 20:25 Melatonin 3 Mg Tablet PO 3 mg QPM UMU Administration Metoclopramide HCl 10 mg 09/09/24 16:27 Metoclopramide 10 Mg/2 Ml Vial IVP Q6HR PRN N/V not relieved by Zofran Morphine Sulfate 2 mg 09/08/24 09:50 09/08/24 09:57 Morphine 2 Mg/Ml Carpuject IVP 2 mg Q6HR PRN Administration Severe Pain (Level 7-10) Bicalutamide 50 Mg 1 each 09/09/24 09:00 09/12/24 08:50 Tablet PO Not Given DAILY UMU Polyethylene Glycol 17 gm 09/10/24 09:00 09/12/24 08:49 Polyethylene Glycol 3350 17 Gm Packet PO 17 gm DAILY UMU Administration Sodium Chloride 10 ml 09/08/24 09:48 09/08/24 13:45 Sodium Chloride Flush 0.9% 10 Ml Syringe IVP 10 ml PRN PRN Administration NEEDED PER PROVIDER ORDERS Sodium Chloride 10 ml 09/08/24 09:48 09/12/24 08:51 Sodium Chloride Flush 0.9% 10 Ml Syringe IVP 10 ml 0100,0900,1700 UMU Administration Tamsulosin HCl 0.4 mg 09/08/24 11:00 09/12/24 08:49 Tamsulosin 0.4 Mg Capsule PO 0.4 mg DAILY UMU Administration Objective Vital Signs/Intake & Output Reviewed Vital Signs: Yes Vital Signs: Vital Signs x48h Temp Pulse Resp BP Pulse Ox 09/12/24 08:03 36.8 C 75 18 103/70 99 09/12/24 06:53 81 101/65 Intake & Output: Intake & Output 09/09/24 09/10/24 09/11/24 09/12/24 23:59 23:59 23:59 23:59 Intake Total 1999 / 1999 6405 / 6405 1340 / 1340 7400 / 7400 Output Total 5455 / 5455 9125 / 9125 5975 / 5975 25868 / 03940 Balance -3455 / -3455 -2720 / -2720 -4635 / -4635 -5525 / -5525 Objective General Appearance: positive No acute distress and Alert; negative Anxious or Lethargic Eyes Bilateral: positive Normal inspection and Conjunctivae nml ENT: positive ENT inspection nml, Pharynx nml and No signs of dehydration Neck: positive Nml inspection, Thyroid nml and No JVD Respiratory: positive Chest non-tender, No respiratory distress and Breath sounds nml; negative Wheezes, Rales or Rhonchi Cardiovascular: positive No murmur and Irregularly irregular; negative Tachycardia, Bradycardia, Systolic murmur or Diastolic murmur Abdomen: positive Non-tender and Other (trey brown urine in the mendez bag); negative Guarding, Rebound, Hepatomegaly, Splenomegaly or Mass Back: positive Nml inspection; negative CVA tenderness (R) or CVA tenderness (L) Skin: positive Color nml, No rash and Warm Extremities: positive Non-tender, Full ROM, Nml appearance and No pedal edema Neurologic/Psychiatric: positive Oriented x3 Comments/Other: Mendez with gross blood noted. Lab Results 09/12/24 05:52 09/12/24 05:52 Other Labs: Lab Results x24hrs 09/12/24 Range/Units 05:52 WBC 7.7 (4.8-10.8) x10^3/uL RBC 2.77 L (4.70-6.10) 10^6/uL Hgb 9.2 L (14.0-18.0) g/dL Hct 28.9 L (42.0-52.0) % MCV 104.3 H (80.0-94.0) fL MCH 33.2 H (27.0-31.0) pg MCHC 31.8 L (32.0-36.0) g/dL RDW 13.5 (12.0-15.0) % Plt Count 162 (130-450) 10^3/uL MPV 11.0 (7.4-11.4) fL Neut # (Auto) 5.1 (1.5-6.6) 10^3/uL Lymph # (Auto) 1.4 L (1.5-3.5) 10^3/uL [place] # (Auto) 0.8 (0.0-1.0) 10^3/uL Eos # (Auto) 0.3 (0.0-0.7) 10^3/uL Baso # (Auto) 0.0 (0.0-0.1) 10^3/uL Absolute Nucleated RBC 0.00 x10^3/uL Nucleated RBC % 0.0 /100WBC Sodium 136 (135-145) mmol/L Potassium 3.5 (3.5-4.5) mmol/L Chloride 103 (101-111) mmol/L Carbon Dioxide 30 (21-32) mmol/L Anion Gap 3.0 L (6-13) BUN 13 (6-20) mg/dL Creatinine 0.8 (0.6-1.3) mg/dL Estimated GFR (MDRD) 91 (>89) Glucose 92 (74-104) mg/dL Calcium 7.5 L (8.5-10.3) mg/dL Magnesium 1.9 (1.7-2.3) mg/dL Total Bilirubin 0.7 (0.2-1.0) mg/dL AST 15 (10-42) IU/L ALT 6 L (10-60) IU/L Alkaline Phosphatase 164 H (42-121) IU/L Total Protein 4.9 L (6.4-8.9) g/dL Albumin 2.5 L (3.2-5.5) g/dL Globulin 2.4 (2.1-4.2) g/dL Albumin/Globulin Ratio 1.0 (1.0-2.2) Assessment/Plan Problem List (1) Acute urinary retention: Impression: CT abdomen shows extracapsular prostate 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 Completed cystoscopy, clot removal with urology. Is cleared from their standpoint for discharge. Patient will be discharged with Mendez. Is pretty weak at baseline, and lives by himself with caregiver coming in not even daily. PT/OT consulted. he needs SNF placement, but is being very selective in where he will go. off antibiotics, urine cultures show no growth. -CBI discontinued, and mendez replaced. unable to get into the bladder. Called Dr Esposito who had recommendations for mendez type, reinstituted CBI, will do this overnight ,then stop and reassess for bleeding. - check CBC in AM. (2) Hydroureteronephrosis: Impression: See above. (3) Hematuria: Impression: See above. Qualifiers: Hematuria type: gross Qualified Code(s): R31.0 - Gross hematuria (4) Malignant neoplasm of prostate with [place] grade score of 8 to 10: Impression: Patient with recently diagnosed prostate cancer with extensive metastasis to bone, pulmonary nodules, pelvic adenopathy. Expresses interest in hospice informational at this time - consulted. After long discussion with them, he decided that he would like to speak with oncology and see what his options are prior to enrolling in hospice. Tells me that he wants to live as long as possible, wants all resusitative measures. (5) Paroxysmal atrial fibrillation: Impression: Patient is not on anticoagulation in the outpatient setting. Currently he is in atrial fibrillation, but is rate controlled. Continue to monitor. (6) Gout: Impression: Has not been on any medication for this for a while. Continue to monitor. Qualifiers: Chronicity: chronic Gout etiology: unspecified cause Gout site: u nspecified site Presence of tophus: without tophus Qualified Code(s): M1A.9XX0 - Chronic gout, unspecified, without tophus (tophi) (7) Coronary artery disease: Impression: Hold aspirin in setting of active hematuria. I have spent 52 minutes in the care of this patient today. This includes time [id number], review and ordering of diagnostic imaging and laboratory studies and consultation with urology, discussions with nurses regarding Mendez catheter without output and hematuria... Monitoring the patient's signs symptoms, evaluation of medication effectiveness and patient's response to treatment. Qualifiers: Associated angina: unspecified whether angina present Coronary Disease- Associated Artery/Lesion type: unspecified vessel or lesion type [place] vs. transplanted heart: unspecified whether [place] or transplanted heart Qualified Code(s): I25.10 - Atherosclerotic heart disease of [place] coronary artery without angina pectoris
[2024-09-12] MEDS: MAGNESIUM CITRATE 296 ML BOTTLE PO ONE (13:46)
[2024-09-12] MEDS: BISACODYL 10 MG SUPP PR PRN (13:54)
[2024-09-12] MEDS: LIDOCAINE 2% URO-JET 5 ML SYRINGE UR ONE (17:40)
[2024-09-13] MEDS: SODIUM CHLORIDE 0.9% 500 ML IV ONE (06:07)
[2024-09-13 06:17] LABS: BASOPHILS % (AUTO) 0.5 %; EOSINOPHILS # (AUTO) 0.3 10^3/uL (0.0-0.7); EOSINOPHILS % (AUTO) 2.9 %; HCT - HEMATOCRIT 29.6 % (42.0-52.0); HGB - HEMOGLOBIN 9.5 g/dL (14.0-18.0); LYMPHOCYTES # (AUTO) 1.9 10^3/uL (1.5-3.5); LYMPHOCYTES % (AUTO) 21.1 %; MEAN CORPUSCULAR HEMOGLOBIN 33.7 pg (27.0-31.0); MEAN CORPUSCULAR HGB CONC 32.1 g/dL (32.0-36.0); MEAN PLATELET VOLUME 10.9 fL (7.4-11.4); MONOCYTES # (AUTO) 0.8 10^3/uL (0.0-1.0); MONOCYTES % (AUTO) 8.9 %; NEUTROPHILS # (AUTO) 5.8 10^3/uL (1.5-6.6); NEUTROPHILS % (AUTO) 66.1 %; PLT - PLATELET COUNT 188 10^3/uL (130-450); RED BLOOD COUNT 2.82 10^6/uL (4.70-6.10); RED CELL DISTRIBUTION WIDTH 13.7 % (12.0-15.0); WHITE BLOOD COUNT 8.8 x10^3/uL (4.8-10.8)
[2024-09-13 06:29] LABS: ALBUMIN 2.7 g/dL (3.2-5.5); ALBUMIN/GLOBULIN RATIO 1.1 (1.0-2.2); BILIRUBIN,TOTAL 0.8 mg/dL (0.2-1.0); CALCIUM 7.8 mg/dL (8.5-10.3); CREATININE 0.7 mg/dL (0.6-1.3); POTASSIUM 3.6 mmol/L (3.5-4.5); TOTAL PROTEIN 5.2 g/dL (6.4-8.9)
--- NOTE | 2024-09-13 17:52 | PROVIDER PROGRESS NOTE ---
Subjective Prog Note Date Prog Note Date: 09/13/24 Subjective Subjective: This patient seems to have delusions of grandeur. He is describing to me all of the interventions that he is thought up today. He states that he is written multiple letters to [employer] and the [facility] regarding all of these ideas. He has multiple ideas about how we could change things to make things better in the hospital. He is firm in his ideas that he would like to receive oncology consultation for his prostate cancer treatment. He believes that he should have continuous bladder irrigation and should go home with this. Current Medications Current Medications Current Medications: Current Medications Generic Name Dose Route Start Last Admin Trade Name Freq PRN Reason Stop Dose Admin Acetaminophen 650 mg 09/08/24 09:48 09/10/24 08:37 Acetaminophen 325 Mg Tablet PO 650 mg Q4HR PRN Administration Pain 1 to 4, or Fever Hydrocodone Bitart/Acetaminophen 1 tab 09/08/24 09:50 09/09/24 02:47 Hydrocod/Acetam 5/325 Mg Tablet PO 1 tab Q4HR PRN Administration Moderate Pain (Level 4-6) Bisacodyl 10 mg 09/12/24 12:54 09/12/24 13:54 Bisacodyl 10 Mg Supp HI 10 mg DAILY PRN Administration Constipation Docusate Sodium 250 - 500 mg 09/10/24 09:00 09/13/24 08:29 Docusate Sodium 250 Mg Capsule PO Not Given DAILY UMU Finasteride 5 mg 09/08/24 11:00 09/13/24 08:29 Finasteride 5 Mg Tablet PO 5 mg DAILY UMU Administration Latanoprost 1 drops 09/08/24 21:00 09/12/24 21:27 Latanoprost 0.005% Ophth Drops EACHEYE 1 drops QPM UMU Administration Melatonin 3 mg 09/08/24 18:00 09/12/24 21:27 Melatonin 3 Mg Tablet PO 3 mg QPM UMU Administration Metoclopramide HCl 10 mg 09/09/24 16:27 Metoclopramide 10 Mg/2 Ml Vial IVP Q6HR PRN N/V not relieved by Zofran Morphine Sulfate 2 mg 09/08/24 09:50 09/08/24 09:57 Morphine 2 Mg/Ml Carpuject IVP 2 mg Q6HR PRN Administration Severe Pain (Level 7-10) Bicalutamide 50 Mg 1 each 09/09/24 09:00 09/13/24 08:29 Tablet PO Not Given DAILY UMU Polyethylene Glycol 17 gm 09/10/24 09:00 09/13/24 08:29 Polyethylene Glycol 3350 17 Gm Packet PO Not Given DAILY UMU Sodium Chloride 10 ml 09/08/24 09:48 09/08/24 13:45 Sodium Chloride Flush 0.9% 10 Ml Syringe IVP 10 ml PRN PRN Administration NEEDED PER PROVIDER ORDERS Sodium Chloride 10 ml 09/08/24 09:48 09/13/24 08:29 Sodium Chloride Flush 0.9% 10 Ml Syringe IVP 10 ml 0100,0900,1700 UMU Administration Tamsulosin HCl 0.4 mg 09/08/24 11:00 09/13/24 08:28 Tamsulosin 0.4 Mg Capsule PO 0.4 mg DAILY UMU Administration Objective Vital Signs/Intake & Output Reviewed Vital Signs: Yes Vital Signs: Vital Signs x48h Temp Pulse Resp BP Pulse Ox 09/13/24 17:16 36.6 C 73 18 102/68 97 Intake & Output: Intake & Output 09/10/24 09/11/24 09/12/24 09/13/24 23:59 23:59 23:59 23:59 Intake Total 6405 / 6405 1340 / 1340 9270 / 9270 6090 / 6090 Output Total 9125 / 9125 5975 / 5975 53407 / 94135 88827 / 82921 Balance -2720 / -2720 -4635 / -4635 -7755 / -7755 -4560 / -4560 Objective General Appearance: positive No acute distress and Alert Eyes Bilateral: positive Conjunctivae nml ENT: positive ENT inspection nml Neck: positive Nml inspection Respiratory: positive Chest non-tender, No respiratory distress and Breath sounds nml Cardiovascular: positive Regular rate & rhythm Abdomen: positive No distention Back: positive Nml inspection Skin: positive Color nml and No rash Extremities: positive Non-tender and No pedal edema Neurologic/Psychiatric: positive Oriented x3 Comments/Other: Genitourinary: There is pink urine in the Dickinson bag. CBI has been complete for several hours. There are no clots. There is some bloody drainage in the patient's diaper but no chris blood around the catheter. Lab Results 09/13/24 06:00 09/13/24 06:00 Other Labs: Lab Results x24hrs 09/13/24 Range/Units 06:00 WBC 8.8 (4.8-10.8) x10^3/uL RBC 2.82 L (4.70-6.10) 10^6/uL Hgb 9.5 L (14.0-18.0) g/dL Hct 29.6 L (42.0-52.0) % MCV 105.0 H (80.0-94.0) fL MCH 33.7 H (27.0-31.0) pg MCHC 32.1 (32.0-36.0) g/dL RDW 13.7 (12.0-15.0) % Plt Count 188 (130-450) 10^3/uL MPV 10.9 (7.4-11.4) fL Neut # (Auto) 5.8 (1.5-6.6) 10^3/uL Lymph # (Auto) 1.9 (1.5-3.5) 10^3/uL [place] # (Auto) 0.8 (0.0-1.0) 10^3/uL Eos # (Auto) 0.3 (0.0-0.7) 10^3/uL Baso # (Auto) 0.0 (0.0-0.1) 10^3/uL Absolute Nucleated RBC 0.00 x10^3/uL Nucleated RBC % 0.0 /100WBC Sodium 136 (135-145) mmol/L Potassium 3.6 (3.5-4.5) mmol/L Chloride 103 (101-111) mmol/L Carbon Dioxide 28 (21-32) mmol/L Anion Gap 5.0 L (6-13) BUN 10 (6-20) mg/dL Creatinine 0.7 (0.6-1.3) mg/dL Estimated GFR (MDRD) 106 (>89) Glucose 94 (74-104) mg/dL Calcium 7.8 L (8.5-10.3) mg/dL Total Bilirubin 0.8 (0.2-1.0) mg/dL AST 20 (10-42) IU/L ALT 11 (10-60) IU/L Alkaline Phosphatase 176 H (42-121) IU/L Total Protein 5.2 L (6.4-8.9) g/dL Albumin 2.7 L (3.2-5.5) g/dL Globulin 2.5 (2.1-4.2) g/dL Albumin/Globulin Ratio 1.1 (1.0-2.2) Assessment/Plan Problem List (1) Acute urinary retention: Impression: CT abdomen shows extracapsular prostate 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 Completed cystoscopy, clot removal with urology. Is cleared from their standpoint for discharge. Patient will be discharged with Dickinson. Is pretty weak at baseline, and lives by himself with caregiver coming in not even daily. PT/OT consulted. he needs SNF placement, but is being very selective in where he will go. off antibiotics, urine cultures show no growth. -Dickinson replaced. CBI in place overnight. Patient now with blood-tinged urine. Will need to watch for any signs of obstruction of the catheter. Seems to be flowing well today. - check CBC in AM.No signs of any anemia related to this hematuria.Laboratory Tests 09/11/24 09/12/24 09/13/24 05:53 05:52 06:00 Hgb 9.3 L 9.2 L 9.5 L (2) Hydroureteronephrosis: Impression: See above. (3) Hematuria: Impression: See above. Qualifiers: Hematuria type: gross Qualified Code(s): R31.0 - Gross hematuria (4) Malignant neoplasm of prostate with [place] grade score of 8 to 10: Impression: Patient with recently diagnosed prostate cancer with extensive metastasis to bone, pulmonary nodules, pelvic adenopathy. Expresses interest in hospice informational at this time - consulted. After long discussion with them, he decided that he would like to speak with oncology and see what his options are prior to enrolling in hospice. Tells me that he wants to live as long as possible, wants all resusitative measures. (5) Paroxysmal atrial fibrillation: Impression: Patient is not on anticoagulation in the outpatient setting. Currently he is in atrial fibrillation, but is rate controlled. Continue to monitor. not on tele, but exam today would indicate that he is not in a fib. (6) Gout: Impression: Has not been on any medication for this for a while. Continue to monitor. Qualifiers: Chronicity: chronic Gout etiology: unspecified cause Gout site: u nspecified site Presence of tophus: without tophus Qualified Code(s): M1A.9XX0 - Chronic gout, unspecified, without tophus (tophi) (7) Coronary artery disease: Impression: Hold aspirin in setting of active hematuria. I have spent 38 minutes in the care of this patient today. This includes time [id number], review and ordering of diagnostic imaging and laboratory studies and consultation with urology, discussions with nurses regarding Dickinson catheter without output and hematuria... Monitoring the patient's signs symptoms, evaluation of medication effectiveness and patient's response to treatment. Qualifiers: Associated angina: unspecified whether angina present Coronary Disease- Associated Artery/Lesion type: unspecified vessel or lesion type [place] vs. transplanted heart: unspecified whether [place] or transplanted heart Qualified Code(s): I25.10 - Atherosclerotic heart disease of [place] coronary artery without angina pectoris
[2024-09-14 06:01] LABS: BASOPHILS # (AUTO) 0.1 10^3/uL (0.0-0.1); BASOPHILS % (AUTO) 0.6 %; EOSINOPHILS # (AUTO) 0.3 10^3/uL (0.0-0.7); EOSINOPHILS % (AUTO) 3.6 %; HCT - HEMATOCRIT 27.9 % (42.0-52.0); HGB - HEMOGLOBIN 9.1 g/dL (14.0-18.0); LYMPHOCYTES # (AUTO) 1.5 10^3/uL (1.5-3.5); LYMPHOCYTES % (AUTO) 17.8 %; MEAN CORPUSCULAR HEMOGLOBIN 33.7 pg (27.0-31.0); MEAN CORPUSCULAR HGB CONC 32.6 g/dL (32.0-36.0); MEAN CORPUSCULAR VOLUME 103.3 fL (80.0-94.0); MEAN PLATELET VOLUME 10.9 fL (7.4-11.4); MONOCYTES # (AUTO) 0.9 10^3/uL (0.0-1.0); MONOCYTES % (AUTO) 10.3 %; NEUTROPHILS # (AUTO) 5.8 10^3/uL (1.5-6.6); NEUTROPHILS % (AUTO) 67.2 %; PLT - PLATELET COUNT 185 10^3/uL (130-450); RED CELL DISTRIBUTION WIDTH 13.6 % (12.0-15.0); WHITE BLOOD COUNT 8.6 x10^3/uL (4.8-10.8)
[2024-09-14 06:20] LABS: CALCIUM 7.7 mg/dL (8.5-10.3); CREATININE 0.6 mg/dL (0.6-1.3); POTASSIUM 3.7 mmol/L (3.5-4.5)
[2024-09-14] MEDS: LORazepam 2 MG/ML VIAL IVP ONE (14:53)
[2024-09-14] MEDS: LIDOCAINE 2% URO-JET 5 ML SYRINGE UR ONE (15:01)
--- NOTE | 2024-09-14 18:22 | PROVIDER PROGRESS NOTE ---
Progress Note Progress Note Progress Note: September 14 2024 6 PM It has been a very eventful day for this gentleman. We started out the day by his description of his unhappiness with the ER service he received the other night when he is out raised that they did not give him morphine and keep him there longer. He then wanted to tell me about the different mattresses that you can put on a bed to make the more comfortable and suggested which mattresses we should be putting in the hospital. He then went on to an extended length of describing how you could make inserting a Mendez and removing a Mendez much more comfortable for the patient. He actually made quite a bit of sounds with some of the things he was suggesting. Unfortunately he managed to intertwine the Mendez between his toes when he was in bed and he began screaming. We realized that he pulled the 22 [place] triple lumen Mendez catheter for CBI almost all the way out. Nursing struggled to get in another Mendez. There is no clots and blood coming but at least he has drainage. This one is a 20 [place] coud. Unfortunately, we have been having to talk to urology through this. Urology is not in town. We are strictly asking his advice. He is not on-call. Exam: Blood pressure is 106/70 Pulse 96, respirations 20, temp 36 5, O2 sat 99% Exam: An 89-year-old chromogen of a gentleman. Perseverating, with occasional speech pattern changes as his tongue does not quite make the word sounds correctly. But his sooner structure is good. Neck is supple Lungs are clear to auscultation and percussion Irregular rate and rhythm she seems very and systolic ejection murmur Abdomen is soft, nontender. Lots to say about the Mendez situation. Extremities without edema I reviewed his labs: Chemistries are normal. Calcium is low at 7.7 but corrected to normal when using albumin. His CBC is normal with a 8.6 white cell count. He has chronic medical blastic anemia and that is stable with a hemoglobin of 9.1. Assessment/Plan Problem List (1) Acute urinary retention: Impression: CT abdomen shows extracapsular prostate 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 Completed cystoscopy, clot removal with urology. Is cleared from their standpoint for discharge. Patient will be discharged with Mendez. Is pretty weak at baseline, and lives by himself with caregiver coming in not even daily. PT/OT consulted. he needs SNF placement, but is being very selective in where he will go. . -So he came in and got CBI after cystoscopy. That was removed on September 11 and then a new Mendez was placed. And today he pulled it out and now again his new Mendez is in place. Quite a bit of trauma. Lots of blood. I am going to be prudent in order Rocephin 1 g daily for the next 3 days. I am continuing his bicalutamide, Proscar and tamsulosin. - I will continue to check CBC in AM.No signs of any anemia related to this hematuria. Laboratory Tests 09/11/24 09/12/24 09/13/24 05:53 05:52 06:00 Hgb 9.3 L 9.2 L 9.5 L (2) Hydroureteronephrosis: Impression: See above. (3) Hematuria: Impression: See above. Qualifiers: Hematuria type: gross Qualified Code(s): R31.0 - Gross hematuria (4) Malignant neoplasm of prostate with [place] grade score of 8 to 10: Impression: Patient with recently diagnosed prostate cancer with extensive metastasis to bone, pulmonary nodules, pelvic adenopathy. Expresses interest in hospice informational at this time and they consulted. After long discussion with them, he decided that he would like to speak with oncology and see what his options are prior to enrolling in hospice. Tells me that he wants to live as long as possible, wants all resusitative measures. (5) Paroxysmal atrial fibrillation: Impression: Patient is not on anticoagulation in the outpatient setting. Currently he is in atrial fibrillation, but is rate controlled. Continue to monitor. not on tele, but exam today would indicate that he is not in a fib. (6) Gout: Impression: Has not been on any medication for this for a while. Continue to monitor. Qualifiers: Chronicity: chronic Gout etiology: unspecified cause Gout site: unspecified site Presence of tophus: without tophus Qualified Code(s): M1A.9X X0 - Chronic gout, unspecified, without tophus (tophi) (7) Coronary artery disease: Impression: Hold aspirin in setting of active hematuria. Qualifiers: Associated angina: unspecified whether angina present Coronary Disease- Associated Artery/Lesion type: unspecified vessel or lesion type [place] vs. transplanted heart: unspecified whether [place] or transplanted heart Qualified Code(s): I25.10 - Atherosclerotic heart disease of [place] coronary artery without angina pectoris 35 minutes was spent in coordinating his care, seeing him several times, and reassuring him about the new mendez
[2024-09-14] MEDS: ZINC OXIDE 20% OINT 30 GM TUBE TOP PRN (21:46)
[2024-09-15 05:36] LABS: BASOPHILS % (AUTO) 0.2 %; EOSINOPHILS # (AUTO) 0.2 10^3/uL (0.0-0.7); EOSINOPHILS % (AUTO) 2.4 %; HCT - HEMATOCRIT 28.8 % (42.0-52.0); LYMPHOCYTES # (AUTO) 1.6 10^3/uL (1.5-3.5); LYMPHOCYTES % (AUTO) 16.1 %; MEAN CORPUSCULAR HGB CONC 31.3 g/dL (32.0-36.0); MEAN CORPUSCULAR VOLUME 105.5 fL (80.0-94.0); MONOCYTES # (AUTO) 0.8 10^3/uL (0.0-1.0); NEUTROPHILS # (AUTO) 7.4 10^3/uL (1.5-6.6); NEUTROPHILS % (AUTO) 72.6 %; PLT - PLATELET COUNT 207 10^3/uL (130-450); RED BLOOD COUNT 2.73 10^6/uL (4.70-6.10); RED CELL DISTRIBUTION WIDTH 13.7 % (12.0-15.0); WHITE BLOOD COUNT 10.1 x10^3/uL (4.8-10.8)
[2024-09-15 05:55] LABS: CALCIUM 7.7 mg/dL (8.5-10.3); CREATININE 0.7 mg/dL (0.6-1.3); POTASSIUM 3.8 mmol/L (3.5-4.5)
--- NOTE | 2024-09-15 12:09 | Discharge Summary ---
Discharge Summary Admit Date: 09/08/24 Discharge Date: 09/15/24 Discharging Provider: Candy Valencia MD Primary Care Provider: Gregory Gunter PA-C Code Status: Attempt Resuscitation DIAGNOSES Discharge Diagnoses with Status of Each Condition: 1. Acute urinary retention 2. bilateral ureter obstruction due to neoplasm 2. Malignant neoplasm of the prostate with Lambert grade score 8-10, diffusely metastatic 3. Coronary artery disease of [place] arteries 4. History of aortic valve replacement . 5. Dickinson catheter in place with risk for infection 6. Proxysmal atrial fib HPI History of Present Illness: Patient is a 89-year-old male with a history of prostate cancer with metastatic disease including pelvic adenopathy, osteoblastic sacral disease, pulmonary nodules who presented with hematuria, as well as dysuria. He states that he has had difficulty urinating with burning for approximately 4 to 5 days. Yesterday evening, he started noticing some blood from his penile area. He has had some continued bleeding since then. He denies any fevers or chills. Records were reviewed, and the last time he saw his urologist, Dr. Esposito was on 08/15/2024. At that time, he did have a cystoscopy done with concern for fungating mass. He recommended PSMA PET CT scan, which he had ordered to [facility]. He also recommended a second opinion from [facility] urology. Patient does have this PET scan scheduled, but has not been completed yet. He was started on continuous bladder irrigation. ED staff did speak with him about Hospice care, and he was open to an informational. In the ER, patient was normotensive blood pressure was 112/82, heart rate was 67, respiratory rate was 18, he was saturating 96% on room air, and was afebrile. CT scan was done, and it did show extra capsular prostate cancer invading the bladder and seminal vesicles resulting in bilateral ureteral obstruction, greater on the left and intravesicular hemorrhage. Emergency room did contact patient's urologist who won't be in town until tomorrow. He had quite a bit of blood and clots in his bladder. Fungating mass was visualized. CBI was continued until September 10. At that point we felt that he would be stable for discharge. Complicating our disposition was the patient's personality. He was adamant that he was going to go home. He was not going to go to a assisted for rehab. We contacted his primary caregiver who goes twice a week to the house. She was appalled and said there is no way she could take care of him 28/02. Since she came into the hospital on September 11 and explained to him that she could not take care of him in that fashion. He reluctantly agreed to going to alf facility for temporary rehab. He would go to rehab to get stronger and more ambulatory and more independent to then return to his baseline status. He will be hiring more caregivers when he returned home and continue his current caregiver. Avoidable days ensued as we awaited authorization from the assisted. He developed obstruction from the regular Dickinson catheter since the CBI Dickinson catheter was discontinued. We had to put in a new Dickinson catheter. The patient then partially pulled that 1 out on September 14. And we put yet in another Dickinson catheter. Patient is now stable for discharge. His Dickinson is draining. I would recommend that he get 3 days of antibiotics in the form of Levaquin since he has had a tremendous amount of instrumentation. This is more for prophylactic not treatment of true UTI. He has been transition to the assisted for PT/OT/speech therapy. He mumbles quite a bit and he might benefit from vocal therapy. He is eating a regular diet. If the fluid becomes obstructed again, we recommend 60 cc of sterile water or saline flush with a syringe. Then remove 60 cc with the same syringe. Repeat until fully obstruction clears. He will need to be seen in follow-up with the second urologist at [facility]. I was under the impression that he had a CT PET. However the CT PET has been ordered and he is to follow-up with that at [facility] as well. His primary care provider is stated to be Gregory Gunter PA-C. However Karly Jani is a walk-in clinic provider. I would strongly suggest the patient establish himself with a permanent PCP. He is discharged in stable condition. Exam has him at 6 foot tall, 104 kg. Blood pressure 100/66. Pulse 91. Respirations 20. Temperature 36.6. O2 sat 95% on room air. He is an alert and oriented patient to person place and time. Very strong opinions and will perseverate and repeat himself. You have to be patient. Neck is supple with shotty adenopathy. Lungs have coarse upper airway sounds but otherwise clear. Irregular rate and rhythm. And abdomen that soft and nontender. Dickinson in place with occasional tinges of hematuria. Extremities without edema. He is able to transfer from edge of bed with contact-guard assist. Sit to stand with minimum assist x 1 and can ambulate a short distance of 15 feet with min a min assist x 1. Uses a front wheel walker. He participated with PT and was progressing with his functional mobility however he remains unable to climb stairs with a limited dynamic balance. He is a moderate fall risk. He should continue with daily PT and progress toward goal of being able to climb his stairs, and decrease his fall risk. He will return with daily caregivers that he will hire in his own home. This document was made in part using voice recognition software. While efforts are made to proofread this document, sound alike and grammatical errors may occur. ALLERGIES Allergies Allergy/AdvReac Type Severity Reaction Status Date / Time No Known Allergies Allergy Unknown Unknown Verified 09/08/24 00:14 MEDICATIONS Ambulatory Orders Medication Instructions Recorded Confirmed bicalutamide 50 mg tablet 150 mg (3 x 50 mg) PO DAILY #90 09/10/24 tabs acetaminophen 325 mg tablet 650 mg (2 x 325 mg) PO Q6H PRN 09/15/24 Pain 1 to 4, or Fever #30 tabs finasteride 5 mg tablet 5 mg PO DAILY large prostate #14 09/15/24 tabs latanoprost 0.005 % eye drops 1 drp ophthalmic (eye) QPM 09/15/24 glaucoma #2.5 mL levofloxacin 750 mg tablet 750 mg PO DAILY #3 tabs 09/15/24 tamsulosin 0.4 mg capsule 0.4 mg PO DAILY #7 caps 09/15/24 09/08/24 zinc oxide 20 % topical ointment 1 applic topical PRN PRN Skin Care 09/15/24 30 days #28 grams LABS 09/15/24 04:50 09/15/24 04:50 TIME SPENT Time Spent in Discharge (Minutes): 40 Discharge Plan Discharge Patient Disposition: [address] [facility] DC/Xfer Condition: Stable Medically Cleared Date:: 09/15/24 Prescriptions: New bicalutamide 50 mg tablet 150 mg PO DAILY Qty: 90 2RF Rx Instructions: take medications until prescription runs out, MUST start another medication from medical oncology by November 06 2024 acetaminophen 325 mg Tablet 650 mg PO Q6H PRN (Reason: Pain 1 to 4, or Fever) Qty: 30 0RF zinc oxide 20 % Ointment 1 applic topical PRN PRN (Reason: Skin Care) 30 Days Qty: 28 0RF levofloxacin 750 mg tablet 750 mg PO DAILY Qty: 3 0RF Continued latanoprost 0.005 % drops 1 drp ophthalmic (eye) QPM Qty: 2.5 0RF finasteride 5 mg tablet 5 mg PO DAILY Qty: 14 0RF Changed tamsulosin 0.4 mg capsule 0.4 mg PO DAILY Qty: 7 0RF Discontinued bicalutamide 50 mg tablet 50 mg PO DAILY Activity Restrictions: Activity as Tolerated Diet: Regular Health Concerns: Next 89-year-old male who has a history of prostate cancer. This is very recently diagnosed a month ago. The cancer is metastatic to lymph nodes, bone and lungs. He presented to the emergency room September 08 with dysuria and urinary retention. Dickinson was placed. CT of the abdomen and pelvis showed stenosis bilaterally of the ureters due to malignancy. Urology performed cystoscopy and clot removal September 09. CBI catheter was kept in place even though no longer being flushed. That was removed and a new Dickinson placed but the Dickinson catheter became clogged so a new Dickinson was placed. The patient tugged on his Dickinson September 14 and lost the catheter in his prostate and had to have another Dickinson catheter in place. This poor gentleman has had several urologic procedures. He initially wanted an informational visit from hospice. After discussing things with hospice he is decided that he wants an opinion from a oncologist to see if he wants treatment. He does not want hospice. He wants everything done. He wants to be a full code. He has become very deconditioned and weak because of all of these procedures. He lives alone. His caregiver comes twice a week and states that she will not be able to convert to 24/7 care. As such she is going to go to a assisted for rehab. Get stronger. Return back to his home with his caregiver. Most likely he will increase caregiver hours with another caregiver. He will also seek treatment for his prostate cancer. I would recommend treatment with antibiotic for 3 days while at the assisted. Because of the multiple urologic procedures I am worried that he is can end up getting a UTI. I have started him on Levaquin once a day for 3 days.Please watch the Dickinson carefully. Because he still has prostate cancer and has not been treated, he still has increased risk of hematuria. The Dickinson catheter will need to be flushed periodically with 60 cc of fluid. The frequency of flushing will depend on how much blood he has in his catheter. It could be once a day, it could be 3 times a day. The urologist took to care of him here was Addi Esposito MD. Print Language: [place]ron[place] Patient Instructions: Cancer Prostate Stand Alone Forms: SNF Discharge Follow-up Care: Addi Esposito MD [Provider Admit Priv/Credential] - Gregory Gunter PA-C [Primary Care Provider] -
[2024-09-15 13:05] VITALS: BP 110/79; TEMP 97.5; O2SAT 97
== END 2024-09-15 13:00 | DRG 713 ==
LOC: ED 00:04 → MS3 08:39
PROVIDERS: ADMIT Internal Medicine; ATTEND Internal Medicine
DX: M1A.9XX0 Chronic gout, unspecified, without tophus (tophi); C61 Malignant neoplasm of prostate; N13.1 Hydronephrosis with ureteral stricture, not elsewhere classified; C78.02 Secondary malignant neoplasm of left lung; C78.01 Secondary malignant neoplasm of right lung; D53.9 Nutritional anemia, unspecified; K43.9 Ventral hernia without obstruction or gangrene; R33.9 Retention of urine, unspecified; D62 Acute posthemorrhagic anemia; Z95.3 Presence of xenogenic heart valve; R31.0 Gross hematuria; C77.5 Secondary and unspecified malignant neoplasm of intrapelvic lymph nodes; K59.00 Constipation, unspecified; I25.10 Atherosclerotic heart disease of native coronary artery without angina pectoris; N13.30 Unspecified hydronephrosis; C79.51 Secondary malignant neoplasm of bone; I48.0 Paroxysmal atrial fibrillation